=== PATIENT | female | born 1980 | race Caucasian/White ===

== ENCOUNTER 2020-01-26 14:28 | Inpatient (IN) | payer MEDICAID, SELFPAY ==
[2020-01-26] VITALS (8 sets, daily range): BP systolic 106–116; BP diastolic 50–73; PULSE 82–101; RESP 14–25; TEMP 36.3–36.7; O2SAT 96–99; BMI 22.2; BMI 22.0
--- NOTE | 2020-01-26 14:50 | ED.RN ---
PT HAS SCLERODERMA, SKIN IS TOUGH, RED, TIGHT.
--- NOTE | 2020-01-26 15:03 | ED.VIS.GEN ---
History of Present Illness Chief Complaint: Abn Labs Informant: Patient Narrative: 39-year-old female with history of systemic scleroderma presenting today with concern for hyponatremia. This is a new issue for the patient. Patient states that she had labs drawn a week ago and it showed that her sodium was 125. Patient states that she does have more difficulty walking due to the lower extremity pain. She does not specifically have any dizziness, shortness of breath, chest pain, nausea, vomiting. She states the medications that she is on are sildenafil 50 mg mg twice a day as well as CellCept 1000 mg mg twice a day. He states he has difficulty opening closing her jaw. Past Medical History - Allergies and Home Meds Allergies/Adverse Reactions: Allergies No Known Allergies Allergy (Verified 01/26/20 14:34) Primary Care Physician: Karie Kline MD [Primary Care Provider] - Past Medical History: - - Systemic scleroderma, Raynauds disease Lives: With Family Smoking Status: Unknown if ever smoked Alcohol: None Review of Systems General: Denies: Chills, Fever Eyes: Denies: Visual changes - bilaterally, Diplopia ENT: Denies: Rhinorrhea, Sore throat Cardiovascular: Denies: Chest pain, Palpitations Respiratory: Denies: Dyspnea Gastrointestinal: Denies: Abdominal pain, Nausea Musculoskeletal: Reports: Extremity Pain - Bilateral knee pain Skin: Denies: Rash, Abscess Neurological: Reports: Weakness. Denies: Headache Psych: Denies: Depression, Anxiety Physical Exam Vital Signs/Narrative: Vital Signs Temp Pulse Resp BP Pulse Ox 01/26/20 14:30 97.4 F L 101 H 14 108/73 97 Inital Vital Signs reviewed: Yes General: No Acute Distress Head: Normocephalic, Atraumatic Eyes: Perrl ENT: Moist mucous membranes, No rhinorrhea Neck: Supple Cardiovascular: Regular rate, Regular rhythm Respiratory: No distress, CTA bilaterally Abdomen: Soft Back: Normal Inspection Extremities: Edema, - - Generalized tenderness around the knees bilaterally Skin: Normal color, No rash Neurological: Alert, Oriented x3 Psychological: Normal affect Diagnostic/Tx/Re-eval - Medical Decision Making Seen and evaluated on arrival for concern for hyponatremia. After I spoke with the patient I did speak with her marking machine operator. She stated that the lab work she initially henry showed a sodium of 125 and a decreasing hemoglobin her latest sodium is 123 drawn a couple of days ago. She stated that the patient often plays down her symptoms because she does not like to be hospitalized. She states that she was complaining of shortness of breath when she was ambulating as well as jaw pain with opening. She had been having loose stools. She had spoken with her specialist who stated that the patient needed to be admitted and have upper endoscopy performed. She has concern for gastric antral vascular ectasia (GAVE syndrome). She feels that this may be part of the reason why her hemoglobin is dropping. Patient had difficulty getting a line ultrasound-guided line was placed by ED physician. Labs are pending. Patient will be signed out to incoming ED physician. This will likely be admission for hyponatremia and anemia. Patient stable on admission. Impression: 1. Hyponatremia 2. Anemia ED Disposition - Plan for ED Patient: Referrals: Karie Kline MD [Primary Care Provider] -
--- NOTE | 2020-01-26 15:04 | EKG12_ITS ---
Test Reason : DYSRHYTHMIA Blood Pressure : / mmHG Vent. Rate : 088 BPM Atrial Rate : 088 BPM P-R Int : 162 ms QRS Dur : 072 ms QT Int : 364 ms P-R-T Axes : 067 048 031 degrees QTc Int : 440 ms Normal sinus rhythm Normal ECG Confirmed by BIB SPENCER ([id number]), non linear editor JIM NARANJO ([id number]) on 01/30/2020 2:08:55 PM Referred By: JUAN Confirmed By:BIB SPENCER
--- NOTE | 2020-01-26 15:05 | VDLE_ITS ---
Reason For Study: Pain RIGHT LEFT GSV is normal. GSV is normal. Rt CFV and SFJ are visualized with color Lt CFV and SFJ are visualized with color only, pt unable to tolerate compression. only, pt unable to tolerate compression. Normal venous flow noted in the CFV. Normal venous flow noted in the CFV. FV is compressible, spontaneous, phasic, FV is compressible, spontaneous, phasic, competent and demonstrates normal competent and demonstrates normal augmentation. augmentation. POP V is compressible, spontaneous, phasic, POP V is compressible, spontaneous, phasic, competent and demonstrates normal competent and demonstrates normal augmentation. augmentation. T/P Trunk is compressible. T/P Trunk is compressible. PTV is compressible. PTV is compressible. RT PerV is compressible. LT PerV is compressible. Procedure Exam performed portable in ED. The study was technically difficult. A preliminary report was called and/or faxed to ED. Interpretation Summary No evidence for acute deep venous thrombosis bilateral lower extremities with patent and compressible bilateral great saphenous veins. Technically difficult and limited examination due to patient discomfort and inability to tolerate compression particularly at bilateral common femoral vein and saphenofemoral junction levels. Interpretation at those sites made by color-flow only Ordering Physician: Shaji Day Referring Physician: Karie Kline Performed By: Stephanie Hardy RVT
[2020-01-26 16:58] LABS: Mucous, Urine 0 SEEN /hpf (<or=2+); Red Blood Cells-Urine 0 SEEN /hpf (0-5); White Blood Cells 0 SEEN /hpf (0-5)
[2020-01-26 17:03] LABS: Color, Urine Yellow (Yellow); Glucose, Dipstick Normal (Normal); Ketone-Dipstick Negative (Negative); Leukocyte Esterase-Dipstick Negative /ul (Negative); Nitrite-Dipstick Negative (Negative); Occult Blood-Urine Negative /ul (Negative); Protein-Dipstick Negative (Negative); Urine Bilirubin Dipstick Negative (Negative); Urine Clarity Cloudy (Clear); Urine Urobilinogen Normal (Normal)
[2020-01-26 17:11] LABS: Absolute Lymphocyte Count 1.35 X10^3/uL (0.83-4.51); Absolute Neutrophil Count 5.3 X10^3/uL (2.0-7.7); Basophil# 0.04 X10^3/uL; Basophil% 0.5 % (0-1); Eosinophil# 0.24 X10^3/uL; Eosinophils% 3.1 % (0-5); Hematocrit 29.9 % (37-47); Hemoglobin 9.5 g/dL (12.0-15.0); Lymphocyte # 1.35 X10^3/ul (4.0); Lymphocyte % 17.2 % (19-41); Mean Corp Hgb Conc 31.8 g/dL (32-36); Mean Corpuscular Hgb 25.5 pg (27.0-32.0); Mean Corpuscular Volume 80.4 fL (81-99); Monocyte# 0.96 X10^3/uL; Monocyte% 12.2 % (0-10); NRBC Flagged by Analyzer 0 % (0-5); Neutrophil # 5.25 X10^3/uL (2.7-7.7); Neutrophil % 66.7 % (47-70); Platelet Count 498 K/mm3 (150-450); RBC Distribution Width CV 15.6 % (11.6-14.6); RBC Distribution Width SD 45.1 fl (35.1-43.9); Red Blood Count 3.72 M/mm3 (4.2-5.4); White Blood Count 7.9 K/mm3 (4.4-11.0)
--- NOTE | 2020-01-26 17:12 | ED.RN ---
DR MENDOZA PLACED IV USING U/S.
[2020-01-26 17:18] LABS: Amorphous Sediment 1+; Bacteria RARE /hpf (None Seen); Squamous Epithelial Cells - UA 0-5 SEEN /hpf (5-10)
--- NOTE | 2020-01-26 17:25 | RAD_ITS ---
STUDY: X-RAY CHEST REASON FOR EXAM: Female, 39 years old. SENT BY PCP FOR LOW SODIUM, H/O SYSTEMIC SCLERODERMA TECHNIQUE: Single frontal view of the chest. COMPARISON: None. FINDINGS: The lungs are clear and expanded. There is no demonstrated pleural abnormality. Normal size heart. Normal mediastinum and jhon. Normal visualized pulmonary arteries. Normal visualized aortic arch and descending thoracic aorta. Normal visualized thoracic spine. Normal visualized ribs, clavicles, and shoulders. There is no demonstrated abnormality of the visualized soft tissue structures of the upper abdomen. RAD/Chest 1 View (Portable) IMPRESSION: Normal x-ray examination of the chest. Electronically Signed: Issa Meadows MD at 17:39 EDT , Service support ,
[2020-01-26 17:31] LABS: ALB/GLOB Ratio 0.8 RATIO (0.9-2.4); AST(SGOT) 31 U/L (15-37); Alanine Aminotransfer ALT/SGPT 12 U/L (13-56); Albumin, Serum 2.9 g/dL (3.2-5.0); Alkaline Phosphatase 42 U/L (45-117); Anion Gap 6 (5-15); BUN 5 mg/dL (7-18); BUN/Creat Ratio 19.5 RATIO (10-20); Calcium,Total 8.4 mg/dL (8.5-10.1); Chloride 94 mmol/L (98-107); Creatinine, Serum 0.26 mg/dL (0.55-1.02); EST Glomerular Filtration Rate 315 mL/min (>60); Est Glom Filt Rate - Afr Amer 381 mL/min (>60); Estimated Creatinine Clearance 210.73 ml/min; Globulin 3.8 g/dL (2.2-4.2); Glucose 94 mg/dL (74-106); Potassium 3.7 mmol/L (3.5-5.1); Protein, Total 6.7 g/dL (6.4-8.2); Sodium Level 127 mmol/L (136-145)
--- NOTE | 2020-01-26 19:41 | PCM.HP.STD ---
Problem List (1) Scleroderma progressive Status: Chronic (2) Hyponatremia Status: Acute (3) Anemia Status: Acute History of Present Illness Date of Admission: 01/26/20 Chief Complaint: Anemia and hyponatremia in lab work with progressive exclude normal symptoms The patient is a 39 year old F with history of scleroderma diagnosed in February 2019 was sent by her gasoline engine assembler, Dr. Sharron Pagan for evaluation of hyponatremia and anemia. Last blood work on 01/11/2020 shows sodium 125, K4.3, chloride 89, bicarb 21, anion gap 15, BUN/creatinine 7/0.28. Albumin 3.8, calcium 9.5. CBC shows WBC count normal 8.8 thousand, H&H 9.8/31 and platelet count 511. UA was negative, specific gravity 1.02 Patient is having progressive increasing symptoms of scleroderma with tightening of his skin and subcutaneous tissue, difficulty opening mouth, mild dysphagia, progressive deformity of small joints of fingers, toes, elbow and knee flexion deformity. Patient cannot climb stairs. She also lost weight about 60 pounds last 8 months. She has history of leukemia as a child and had 3-1/2 years of chemotherapy and radiation as per the mother. Today, labs in ER shows sodium 127, chloride 94, H&H 9.5/30, platelet count 498. She follows gasoline engine assembler Dr. Sharron Pagan in [place], phone #[phone] and Sepideh Mchugh in [facility], phone #[phone]. She denies acute symptoms of shortness of breath, chest pressure, abdominal pain, GI bleed. She has reduced exercise capacity and shortness of breath on exertion, but that is chronic. [] Past Medical History Past Medical History (Chronic Problems): Chronic Problems Scleroderma progressive (Chronic) Allergies No Known Allergies Allergy (Verified 01/26/20 14:34) Home Medications: Ambulatory Orders Medication Instructions Recorded Cyanocobalamin (Vitamin B-12) 1,000 mcg PO DAILY 01/26/20 [Vitamin B-12] Ergocalciferol [Vitamin D] 50,000 unit PO ROE 01/26/20 Mycophenolate Mofetil HCl 1,000 mg PO BID 01/26/20 [Mycophenolate Mofetil] Sildenafil Citrate 50 mg PO BID 01/26/20 Vitamin E 400 unit PO DAILY 01/26/20 Lives: With Family Smoking Status: Unknown if ever smoked Alcohol: None - *Family History Maternal History Items: - - Maternal aunt has lupus, otherwise no first-degree family active of autoimmune rheumatologic disease. Review of Systems Constitutional: Denies: Chills, Fever, Weight Change HEENT: Denies: Head Aches, Sinus Congestion, Sinus Drainage Cardiovascular: Denies: Chest Pain, Palpitations Respiratory: Reports: Shortness of breath upon exertion. Denies: Cough, Shortness of breath at rest, Sputum production Gastrointestinal: Reports: Constipation. Denies: Abdominal Pain, Nausea, Vomiting Genitourinary: Denies: Dysuria Musculoskeletal: Denies: Joint Pain, Joint Tenderness Skin: Denies: Rash, Wounds Neurological: Reports: Balance problems, Incoordination. Denies: Focal weakness, Numbness, Tingling Psychiatric: Denies: Anxiety, Depression, Homicidal Ideations, Suicidal Ideations Hematologic/ Lymphatic: Denies: Easy Bruising, Easy Bleeding VTE Information - Inpt Only VTE Present on Admission: No VTE Mechan Device Prophylaxis: None VTE Pharm Prophylaxis ordered?: Yes Patient Problems: Active and Suspected Problems Hyponatremia (Acute) Anemia (Acute) - Physical Exam Vitals/I&O's: Vital Signs Temp Pulse Resp BP Pulse Ox 98.1 F 89 18 116/59 L 99 01/26/20 18:44 01/26/20 18:44 01/26/20 18:44 01/26/20 18:44 01/26/20 16:42 Weight: 114 lb Body Mass Index (BMI) 22.2 Intake and Output for Last 24 Hours 01/24/20 01/25/20 01/26/20 23:59 23:59 23:59 Intake Total 500 / 500 Balance 500 / 500 General: Alert, Oriented x3, Cooperative HEENT: Atraumatic, PERRLA, EOMI, Normocephalic Oral: No Gingival or Mucosal Lesions/ Ulcerations, Dry Mucosa Neck: Supple, No JVD, Negative Carotid Bruits Lungs: Normal air movement, No rhonchi, No wheeze, No rales, Diminished - Air entry diminished in bilateral lung bases Cardiovascular: Regular rate, No murmurs Abdomen: Bowel Sounds Present, Soft, Non Tender, Non-Distended Extremities: No edema, Capillary Refill Less than 3 Seconds, - - Finger deformities of both hands and toes. Elbow and knee flexion deformity. Not able to sit up from supine position on its own. Weak abdominal muscles Skin: No rashes, No breakdown, - - Tightening of his skin over face and chest. Decreasing oral aperture. Musculoskeletal: No Tenderness to Palpation of Joints or Extremities Neurological: Cranial nerves II-XII grossly intact, Deep Tendon Reflexes 2+/4 and Symmetrical, Neuro grossly intact, - - Generalized weakness of muscles. Loss of subcutaneous fat tissue. Psych/Mental Status: Normal Affect, Appropriate Laboratory Results 01/26/20 16:46: Urine Color Yellow, Urine Clarity Cloudy, Urine pH 7.0, Ur Specific [place] 1.010, Urine Protein Negative, Urine Glucose (UA) Normal, Urine Ketones Negative, Urine Occult Blood Negative, Urine Nitrite Negative, Urine Bilirubin Negative, Urine Urobilinogen Normal, Ur Leukocyte Esterase Negative, Urine RBC 0 SEEN, Urine WBC 0 SEEN, Ur Squamous Epith Cells 0-5 SEEN, Amorphous Sediment 1+, Urine Bacteria RARE, Urine Mucus 0 SEEN 01/26/20 17:03: WBC 7.9, RBC 3.72 L, Hgb 9.5 L, Hct 29.9 L, MCV 80.4 L, MCH 25.5 L, MCHC 31.8 L, RDW Std Deviation 45.1 H, RDW Coeff of Maryann 15.6 H, Plt Count 498 H, MPV 9.0, Immature Gran % (Auto) 0.300, Neut % (Auto) 66.7, Lymph % (Auto) 17.2 L, [place] % (Auto) 12.2 H, Eos % (Auto) 3.1, Baso % (Auto) 0.5, Absolute Neuts (auto) 5.3, Absolute Lymphs (auto) 1.35, Nucleated RBC % 0 01/26/20 17:03: Sodium 127 L, Potassium 3.7, Chloride 94 L, Carbon Dioxide 27.0, Anion Gap 6, BUN 5 L, Creatinine 0.26 L, Estim Creat Clear Calc 210.73, Est GFR (MDRD) Af Amer 381, Est GFR (MDRD) Non-Af 315, BUN/Creatinine Ratio 19.5, Glucose 94, Calcium 8.4 L, Total Bilirubin 0.20, AST 31, ALT 12 L, Alkaline Phosphatase 42 L, Total Protein 6.7, Albumin 2.9 L, Globulin 3.8, Albumin/Globulin Ratio 0.8 L Assessment/Plan All Active Problems Hyponatremia (Acute) Anemia (Acute) The patient is a 39 year old F with history of scleroderma diagnosed in February 2019 was sent by her gasoline engine assembler, Dr. Sharron Pagan for evaluation of hyponatremia and anemia. [] 1. Acute on chronic hyponatremia, most likely hypotonic isovolumic hyponatremia: Patient is being admitted to [facility] on telemetry. IV fluid normal saline at 100 mL/h. Monitor BMP tomorrow a.m. Serum osmolality, urine osmolality and urine lites ordered. 2. Mild normocytic normochromic anemia most likely from his chronic heart disease and possible medication side effect: Patient is on mycophenolate mofetil and has side effect of pancytopenia/immune suppression or pure red cell aplasia. Stool for occult blood ordered. PCP sent to ER for EGD for possible GAVE/watermelon stomach as scleroderma is related with gave. Consult surgery tomorrow a.m. 3. Progressive scleroderma, systemic with skin and musculoskeletal features, dysphagia and abnormal syndrome: She follows gasoline engine assembler Dr. Sharron Pagan in [place], phone #[phone] and Sepideh Mchugh in [facility], phone #[phone].Follow-up with gasoline engine assembler as an outpatient. Continue mycophenolate, sildenafil and B12. Patient might have pulmonary complications of scleroderma but never had CT chest and as per mother it is not covered by insurance. 4. Chronic loss of weight with moderate protein calorie malnutrition: She has diffuse subcutaneous loss of fat and moderate muscle atrophy with tightening of his skin secondary to scleroderma. She also has history of childhood leukemia status post chemoradiation. 5. VTE prophylaxis, moderate risk: On Lovenox 40 mg subcu daily. Discontinue if platelet count drops less than 50,000 or hemoglobin less than 8 g% OBSV E&M: 84805 Initial observation care L3
[2020-01-26 20:44] LABS: Osmolality, Serum 256 mOsm/KG (275-295)
[2020-01-26 22:11] LABS: Protein, Urine (Random) 10.8 mg/dL (<11.9); Protein:Creat Ratio 495 mg/g CRE (0-200)
[2020-01-26] MEDS: 0.9% Normal Saline 1,000 ML 100 ML IV (22:11)
[2020-01-26] MEDS: Mycophenolate Mofetil 250 MG Capsule 1000 MG PO (22:13)
[2020-01-26 22:18] LABS: Urine Chloride 141 mmol/L (Not Establ.); Urine Sodium 133 mmol/L (Not Establ.)
[2020-01-26 22:31] LABS: Osmolality, Urine 416 mOsm/KG
[2020-01-27] VITALS (12 sets, daily range): BP systolic 118–121; BP diastolic 53–77; PULSE 71–91; RESP 17–18; TEMP 36.4–37.1; O2SAT 94–99
[2020-01-27] MEDS: Enoxaparin 40 MG/0.4 ML Syringe SC (05:38)
[2020-01-27] MEDS: 0.9% Saline Lock 10 ML Syringe IV (08:12)
[2020-01-27 08:16] LABS: Absolute Neutrophil Count 1.6 X10^3/uL (2.0-7.7); Basophil# 0.03 X10^3/uL; Basophil% 0.9 % (0-1); Eosinophil# 0.18 X10^3/uL; Eosinophils% 5.1 % (0-5); Hematocrit 26.5 % (37-47); Hemoglobin 8.3 g/dL (12.0-15.0); Lymphocyte % 31.4 % (19-41); Mean Corp Hgb Conc 31.3 g/dL (32-36); Mean Corpuscular Hgb 25.1 pg (27.0-32.0); Mean Corpuscular Volume 80.1 fL (81-99); Monocyte# 0.54 X10^3/uL; Monocyte% 15.4 % (0-10); NRBC Flagged by Analyzer 0 % (0-5); Neutrophil # 1.64 X10^3/uL (2.7-7.7); Neutrophil % 46.9 % (47-70); POSITIVE MORPHOLOGY YES; Platelet Count 428 K/mm3 (150-450); RBC Distribution Width CV 15.8 % (11.6-14.6); RBC Distribution Width SD 46.1 fl (35.1-43.9); Red Blood Count 3.31 M/mm3 (4.2-5.4); White Blood Count 3.5 K/mm3 (4.4-11.0)
[2020-01-27 08:43] LABS: Differential Indicated SCAN CRITERIA MET
[2020-01-27 08:44] LABS: Differential Comment SCANNED
[2020-01-27 08:47] LABS: Anion Gap 6 (5-15); BUN 4 mg/dL (7-18); BUN/Creat Ratio 23.3 RATIO (10-20); Calcium,Total 7.8 mg/dL (8.5-10.1); Chloride 94 mmol/L (98-107); Creatinine, Serum 0.17 mg/dL (0.55-1.02); EST Glomerular Filtration Rate 501 mL/min (>60); Est Glom Filt Rate - Afr Amer 606 mL/min (>60); Estimated Creatinine Clearance 322.29 ml/min; Glucose 84 mg/dL (74-106); Magnesium 1.8 mg/dL (1.6-2.6); Potassium 3.7 mmol/L (3.5-5.1); Sodium Level 127 mmol/L (136-145); Thyroid Stim Hormone (TSH) 2.04 uIU/mL (0.358-3.74)
[2020-01-27] MEDS: 0.9% Normal Saline 1,000 ML 100 ML IV (08:48)
--- NOTE | 2020-01-27 09:10 | PCM.PN.HOSP ---
Patient Problems: Active and Suspected Problems Hyponatremia (Acute) Anemia (Acute) Reason for Visit: Hyponatremia Subjective: Patient is a 39-year-old lady with history of scleroderma admitted with abnormal lab work with sodium of 127 Objective: GENERAL: cooperative HEENT: Atraumatic; EYES; Anicteric, Normal Conjunctiva NECK; supple, normal thyroid, RESPIRATORY: Diminished to auscultation CARDIOVASCULAR: Regular S1 S2, GI: soft, normoactive bowel sounds, : No Renal angle tenderness; EXTREMITIES: No edema, no clubbing, MUSCULOSKELETAL: no muscle waisting NEURO: Awake; no lateralizing signs. SKIN: Tightening of the skin arms face and chest PSYCH; Flat affect Vitals/I&O's: Vital Signs Temp Pulse Resp BP Pulse Ox 97.6 F L 71 18 118/68 99 01/27/20 02:48 01/27/20 04:00 01/27/20 02:48 01/27/20 02:48 01/27/20 02:48 Oxygen Delivery Method Room Air Weight: 51.2 kg Body Mass Index (BMI) 22.0 Intake and Output for Last 24 Hours 01/25/20 01/26/20 01/27/20 23:59 23:59 23:59 Intake Total 500 / 500 1300 / 1300 Output Total 550 / 550 Balance 500 / 500 750 / 750 Laboratory Results 01/26/20 16:46: Urine Color Yellow, Urine Clarity Cloudy, Urine pH 7.0, Ur Specific [place] 1.010, Urine Protein Negative, Urine Glucose (UA) Normal, Urine Ketones Negative, Urine Occult Blood Negative, Urine Nitrite Negative, Urine Bilirubin Negative, Urine Urobilinogen Normal, Ur Leukocyte Esterase Negative, Urine RBC 0 SEEN, Urine WBC 0 SEEN, Ur Squamous Epith Cells 0-5 SEEN, Amorphous Sediment 1+, Urine Bacteria RARE, Urine Mucus 0 SEEN 01/26/20 16:46: Urine Osmolality 416 01/26/20 16:46: Urine Creatinine 22.60 01/26/20 16:46: U Random Total Protein 10.8, Urine Creatinine 21.80, Protein/Creatinin Ratio 495 H 01/26/20 16:46: Ur Random Sodium 133, Urine Potassium 28.0, Urine Chloride 141 01/26/20 17:03: WBC 7.9, RBC 3.72 L, Hgb 9.5 L, Hct 29.9 L, MCV 80.4 L, MCH 25.5 L, MCHC 31.8 L, RDW Std Deviation 45.1 H, RDW Coeff of Maryann 15.6 H, Plt Count 498 H, MPV 9.0, Immature Gran % (Auto) 0.300, Neut % (Auto) 66.7, Lymph % (Auto) 17.2 L, [place] % (Auto) 12.2 H, Eos % (Auto) 3.1, Baso % (Auto) 0.5, Absolute Neuts (auto) 5.3, Absolute Lymphs (auto) 1.35, Nucleated RBC % 0 01/26/20 17:03: Sodium 127 L, Potassium 3.7, Chloride 94 L, Carbon Dioxide 27.0, Anion Gap 6, BUN 5 L, Creatinine 0.26 L, Estim Creat Clear Calc 210.73, Est GFR (MDRD) Af Amer 381, Est GFR (MDRD) Non-Af 315, BUN/Creatinine Ratio 19.5, Glucose 94, Calcium 8.4 L, Total Bilirubin 0.20, AST 31, ALT 12 L, Alkaline Phosphatase 42 L, Total Protein 6.7, Albumin 2.9 L, Globulin 3.8, Albumin/Globulin Ratio 0.8 L 01/26/20 17:03: Serum Osmolality 256 L 01/27/20 08:07: WBC 3.5 L, RBC 3.31 L, Hgb 8.3 L, Hct 26.5 L, MCV 80.1 L, MCH 25.1 L, MCHC 31.3 L, RDW Std Deviation 46.1 H, RDW Coeff of Maryann 15.8 H, Plt Count 428, MPV 9.0, Immature Gran % (Auto) 0.300, Neut % (Auto) 46.9 L, Lymph % (Auto) 31.4, [place] % (Auto) 15.4 H, Eos % (Auto) 5.1 H, Baso % (Auto) 0.9, Absolute Neuts (auto) 1.6 L, Absolute Lymphs (auto) 1.10, Nucleated RBC % 0, Differential Comment SCANNED 01/27/20 08:07: Sodium 127 L, Potassium 3.7, Chloride 94 L, Carbon Dioxide 27.0, Anion Gap 6, BUN 4 L, Creatinine 0.17 L, Estim Creat Clear Calc 322.29, Est GFR (MDRD) Af Amer 606, Est GFR (MDRD) Non-Af 501, BUN/Creatinine Ratio 23.3 H, Glucose 84, Calcium 7.8 L, Magnesium 1.8, TSH 2.04 01/27/20 08:07: Sodium Cancelled, Potassium Cancelled, Chloride Cancelled, Carbon Dioxide Cancelled, Anion Gap Cancelled, BUN Cancelled, Creatinine Cancelled, Estim Creat Clear Calc Cancelled, Est GFR (MDRD) Af Amer Cancelled, Est GFR (MDRD) Non-Af Cancelled, BUN/Creatinine Ratio Cancelled, Glucose Cancelled, Calcium Cancelled Current Medications Acetaminophen (Tylenol) 650 mg PO Q6H PRN PRN PRN Reason: Pain Score 1-10/Temp > 100.7 F Albuterol Sulfate (Ventolin Aerosols) 2.5 mg INHALATION Q2H PRN PRN PRN Reason: Shortness of Breath/Wheezing Cyanocobalamin (Vitamin B12) 1,000 mcg PO DAILY [facility] Enoxaparin Sodium (Lovenox) 40 mg SC DAILY@0600 [facility] Last Admin: 01/27/20 05:38 Dose: 40 mg Documented by: Ergocalciferol (Vitamin D) 50,000 unit PO ROE [facility] Sodium Chloride () 1,000 mls @ 100 mls/hr IV .Q10H [facility] Last Admin: 01/27/20 08:48 Dose: 100 mls/hr Documented by: Melatonin (Melatonin) 3 mg PO QHS PRN PRN PRN Reason: INSOMNIA Morphine Sulfate () 2 mg IV Q3H PRN PRN PRN Reason: Pain Score 6-10/10 Mycophenolate Mofetil (Cellcept) 1,000 mg PO BID [facility] Last Admin: 01/26/20 22:13 Dose: 1,000 mg Documented by: Non-Formulary Medication (Sildenafil Citrate) 50 mg PO BID [facility] Nutritional Formula (Lactose Free) (Ensure Enlive) 120 ml PO 4X/DAY [facility] Ondansetron HCl (Zofran) 4 mg IV Q8H PRN PRN PRN Reason: NAUSEA/VOMITING Oxycodone HCl (Oxyir) 5 mg PO Q4H PRN PRN PRN Reason: Pain Score 4-5/10 Senna/Docusate Sodium (Senokot-S, Neema-Colace) 2 tablet PO BID PRN PRN PRN Reason: Constipation Sodium Chloride () 10 - 40 ml IV UD PRN PRN Reason: SALINE FLUSH Last Admin: 01/27/20 08:12 Dose: 10 ml Documented by: Vitamin E (Vitamin E) 400 units PO DAILY [facility] Medical Necessity - Tobacco Use Smoking Status: Current every day smoker Tobacco Use: Cigarettes Assessment/Plan All Active Problems Hyponatremia (Acute) Anemia (Acute) Patient is a 39-year-old lady with history of scleroderma admitted with abnormal lab work with sodium of 127 1. Acute on chronic hyponatremia ?Do suspect SIADH. Patient was started on fluids on admission however sodium levels did not change much. Patient was subsequently placed on fluid restriction after urine electrolytes have been ordered and consultation placed to nephrology 2. Progressive scleroderma ?Patient is onmycophenolate mofetil followed by field producer on [facility] 3. Anemia ?Suspected to be secondary to side effect of patient's therapy for her scleroderma. Monitoring H&H with plans to transfuse if hemoglobin falls below 7 or patient becomes symptomatic 4. Severe protein calorie malnutrition ?Consult placed to dietitian 5. 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 DVT prophylaxis ?Lovenox Inpatient E&M: [id number] [facility] Hosp L3
[2020-01-27] MEDS: Cyanocobalamin 500 MCG Tablet 1000 MCG PO (11:21)
[2020-01-27] MEDS: Mycophenolate Mofetil 250 MG Capsule 1000 MG PO ×2 (11:22→20:41)
[2020-01-27] MEDS: Vitamin E 400 UNITS Capsule PO (11:22)
--- NOTE | 2020-01-27 12:51 | CON.PCM_ITS ---
Problem List (1) Anemia Status: Acute Qualifiers: Anemia type: unspecified type Qualified Code(s): D64.9 - Anemia, unspecified Reason for Consult Date of Consultation: 01/27/20 History of Present Illness: The patient is a 39 year old F who is hospitalized due to hyponatremia. The patient notes no gross blood in her stool. She was advised to have a colonoscopy and EGD due to scleroderma and anemia. Patient is not having any abdominal pain. Past Medical History Past Medical History (Chronic Problems): Chronic Problems Scleroderma progressive (Chronic) Allergies No Known Allergies Allergy (Verified 01/26/20 14:34) Home Medications: Ambulatory Orders Medication Instructions Recorded Cyanocobalamin (Vitamin B-12) 1,000 mcg PO DAILY 01/26/20 [Vitamin B-12] Ergocalciferol [Vitamin D] 50,000 unit PO ROE 01/26/20 Mycophenolate Mofetil HCl 1,000 mg PO BID 01/26/20 [Mycophenolate Mofetil] Sildenafil Citrate 50 mg PO BID 01/26/20 Vitamin E 400 unit PO DAILY 01/26/20 Lives: With Family Smoking Status: Current every day smoker Tobacco Use: Cigarettes Alcohol: None - *Family History Maternal History Items: - - Maternal aunt has lupus, otherwise no first-degree family active of autoimmune rheumatologic disease. Review of Systems Constitutional: Denies: Anorexia, Fever HEENT: Denies: Difficulty Swallowing Cardiovascular: Denies: Chest Pain Respiratory: Denies: Cough, Shortness of Breath Gastrointestinal: Denies: Abdominal Pain, Hematemesis, Hematochezia, Nausea, Melena, Vomiting Genitourinary: Denies: Frequency Psychiatric: Denies: Anxiety Hematologic/ Lymphatic: Reports: Anemia Patient Problems: Active and Suspected Problems Hyponatremia (Acute) Anemia (Acute) - Physical Exam Vitals/I&O's: Vital Signs Temp Pulse Resp BP Pulse Ox 98.7 F 72 18 121/67 H 99 01/27/20 08:45 01/27/20 08:45 01/27/20 08:45 01/27/20 08:45 01/27/20 08:45 Oxygen Delivery Method Room Air Weight: 112 lb 14.027 oz Body Mass Index (BMI) 22.0 Intake and Output for Last 24 Hours 01/25/20 01/26/20 01/27/20 23:59 23:59 23:59 Intake Total 500 / 500 1420 / 1420 Output Total 550 / 550 Balance 500 / 500 870 / 870 General: Alert, Oriented x3 Neck: No JVD Lungs: Normal air movement Cardiovascular: Regular rate, Regular Rhythm Abdomen: Soft, Non Tender, Non-Distended Extremities: No clubbing Musculoskeletal: No Muscle Wasting Neurological: Cranial nerves II-XII grossly intact Psych/Mental Status: Normal Affect Laboratory Results 01/26/20 16:46: Urine Color Yellow, Urine Clarity Cloudy, Urine pH 7.0, Ur Specific Social [place] 1.010, Urine Protein Negative, Urine Glucose (UA) Normal, Urine Ketones Negative, Urine Occult Blood Negative, Urine Nitrite Negative, Urine Bilirubin Negative, Urine Urobilinogen Normal, Ur Leukocyte Esterase Negative, Urine RBC 0 SEEN, Urine WBC 0 SEEN, Ur Squamous Epith Cells 0-5 SEEN, Amorphous Sediment 1+, Urine Bacteria RARE, Urine Mucus 0 SEEN 01/26/20 16:46: Urine Osmolality 416 01/26/20 16:46: Urine Creatinine 22.60 01/26/20 16:46: U Random Total Protein 10.8, Urine Creatinine 21.80, Protein/Creatinin Ratio 495 H 01/26/20 16:46: Ur Random Sodium 133, Urine Potassium 28.0, Urine Chloride 141 01/26/20 17:03: WBC 7.9, RBC 3.72 L, Hgb 9.5 L, Hct 29.9 L, MCV 80.4 L, MCH 25.5 L, MCHC 31.8 L, RDW Std Deviation 45.1 H, RDW Coeff of Maryann 15.6 H, Plt Count 498 H, MPV 9.0, Immature Gran % (Auto) 0.300, Neut % (Auto) 66.7, Lymph % (Auto) 17.2 L, [place] % (Auto) 12.2 H, Eos % (Auto) 3.1, Baso % (Auto) 0.5, Absolute Neuts (auto) 5.3, Absolute Lymphs (auto) 1.35, Nucleated RBC % 0 01/26/20 17:03: Sodium 127 L, Potassium 3.7, Chloride 94 L, Carbon Dioxide 27.0, Anion Gap 6, BUN 5 L, Creatinine 0.26 L, Estim Creat Clear Calc 210.73, Est GFR (MDRD) Af Amer 381, Est GFR (MDRD) Non-Af 315, BUN/Creatinine Ratio 19.5, Glucose 94, Calcium 8.4 L, Total Bilirubin 0.20, AST 31, ALT 12 L, Alkaline Phosphatase 42 L, Total Protein 6.7, Albumin 2.9 L, Globulin 3.8, Albumin/Globulin Ratio 0.8 L 01/26/20 17:03: Serum Osmolality 256 L 01/27/20 08:07: WBC 3.5 L, RBC 3.31 L, Hgb 8.3 L, Hct 26.5 L, MCV 80.1 L, MCH 25.1 L, MCHC 31.3 L, RDW Std Deviation 46.1 H, RDW Coeff of Maryann 15.8 H, Plt Count 428, MPV 9.0, Immature Gran % (Auto) 0.300, Neut % (Auto) 46.9 L, Lymph % (Auto) 31.4, Grant % (Auto) 15.4 H, Eos % (Auto) 5.1 H, Baso % (Auto) 0.9, Absolute Neuts (auto) 1.6 L, Absolute Lymphs (auto) 1.10, Nucleated RBC % 0, Differential Comment SCANNED 01/27/20 08:07: Sodium 127 L, Potassium 3.7, Chloride 94 L, Carbon Dioxide 27.0, Anion Gap 6, BUN 4 L, Creatinine 0.17 L, Estim Creat Clear Calc 322.29, Est GFR (MDRD) Af Amer 606, Est GFR (MDRD) Non-Af 501, BUN/Creatinine Ratio 23.3 H, Glucose 84, Calcium 7.8 L, Magnesium 1.8, TSH 2.04 01/27/20 08:07: Sodium Cancelled, Potassium Cancelled, Chloride Cancelled, Carbon Dioxide Cancelled, Anion Gap Cancelled, BUN Cancelled, Creatinine Cancelled, Estim Creat Clear Calc Cancelled, Est GFR (MDRD) Af Amer Cancelled, Est GFR (MDRD) Non-Af Cancelled, BUN/Creatinine Ratio Cancelled, Glucose Cancelled, Calcium Cancelled Clinical Impression(s) from Imaging Studies Chest X-Ray 01/26/20 17:25 IMPRESSION: Normal x-ray examination of the chest. Electronically Signed: Issa Meadows MD at 17:39 EDT , Service support , Current Medications Acetaminophen (Tylenol) 650 mg PO Q6H PRN PRN PRN Reason: Pain Score 1-10/Temp > 100.7 F Albuterol Sulfate (Ventolin Aerosols) 2.5 mg INHALATION Q2H PRN PRN PRN Reason: Shortness of Breath/Wheezing Cyanocobalamin (Vitamin B12) 1,000 mcg PO DAILY [facility] Last Admin: 01/27/20 11:21 Dose: 1,000 mcg Documented by: Enoxaparin Sodium (Lovenox) 40 mg SC DAILY@0600 [facility] Last Admin: 01/27/20 05:38 Dose: 40 mg Documented by: Ergocalciferol (Vitamin D) 50,000 unit PO ROE [facility] Melatonin (Melatonin) 3 mg PO QHS PRN PRN PRN Reason: INSOMNIA Morphine Sulfate () 2 mg IV Q3H PRN PRN PRN Reason: Pain Score 6-10/10 Mycophenolate Mofetil (Cellcept) 1,000 mg PO BID [facility] Last Admin: 01/27/20 11:22 Dose: 1,000 mg Documented by: Nutritional Formula (Lactose Free) (Ensure Enlive) 120 ml PO 4X/DAY [facility] Last Admin: 01/27/20 11:24 Dose: 120 ml Documented by: Ondansetron HCl (Zofran) 4 mg IV Q8H PRN PRN PRN Reason: NAUSEA/VOMITING Oxycodone HCl (Oxyir) 5 mg PO Q4H PRN PRN PRN Reason: Pain Score 4-5/10 Senna/Docusate Sodium (Senokot-S, Neema-Colace) 2 tablet PO BID PRN PRN PRN Reason: Constipation Sildenafil Citrate (Viagra) 50 mg PO BID [facility] Sodium Chloride () 10 - 40 ml IV UD PRN PRN Reason: SALINE FLUSH Last Admin: 01/27/20 08:12 Dose: 10 ml Documented by: Vitamin E (Vitamin E) 400 units PO DAILY [facility] Last Admin: 01/27/20 11:22 Dose: 400 units Documented by: Assessment/Plan All Active Problems Hyponatremia (Acute) Anemia (Acute) 39-year-old female with anemia 1. The patient has scleroderma and anemia. She was recommended to have endoscopy to check for GAVE syndrome. The patient does not note any gross blood in her stool or abdominal pain. She has never had an EGD or colonoscopy. The patient's not having any gross blood loss and I would recommend that she undergo outpatient EGD and colonoscopy. I discussed these with her. I will have my office call her after discharge to arrange a COVID test and elective endoscopy. I explained endoscopy in detail to the patient. I explained the risks including but not limited to stroke or heart attack with anesthesia, perforation of the GI tract, bleeding, infection. I explained that any of these could necessitate further emergency surgery. The patient understands and all questions were answered sufficiently. The patient wishes to proceed with procedure. Terrance Aguilar MD Pager: [facility] [address] [place] [address], [address] [place] [address] Office:
[2020-01-27] MEDS: SILDENAFIL CITRATE 25 MG TABLET 50 MG PO ×2 (13:59→20:40)
--- NOTE | 2020-01-27 14:00 | CASEMGMT ---
RN WILLAM EXECUTIVE VICE PRESIDENT AND CHIEF FINANCIAL OFFICER CM to room to meet with patient for initial transition planning/care coordination assessment. NATALY QUARLES introduced self and role at [facility]. Pt voices understanding and consents to assessment at this time. Pt sitting up in chair in room in no distress at this time. Mother sitting beside pt. Pt is A/O at this time and answers all questions appropriately. Care providers, pharmacy, and demographics verified/updated at this time. PCP: Dr Tiwari Murdock Specialists: Dr Mchugh--Scleroderma specialist, Dr Sharron Pagan--cloud subject matter expert, Dr Goldberg--GI @ [facility] Preferred Pharmacy: [facility] Insurance: [facility] Prescription Benefit: Yes Living Will/HPOA: States does not have LW or HCPOA . Interested in more information and would like to talk w/SW at this time to complete paperwork. Provided information on advanced directives and SW, Dalila, made aware pt would like to complete paperwork. LNOK: Mother, Crystal Dave. Pt has 3 children: ages 14, 10, and 8 Living Arrangements: Lives w/her fiance and 3 children in 2-story home. 5 steps to enter. Bedroom and bath on 2nd floor. Fiance and mom both assist pt with ADL's and IADL's. Fiance helps pt w/getting ready in AM and then pt goes to her mothers house (which is 2 blocks away) for most of the day. Pt able to feed self. Transportation: Pt drives short distances only DME: Has extended tub/transfer bench and BSC. Pt interested in other adaptive equip for in the home to assist w/standing up, but would like to have therapy evaluate her in the home setting and make recommendations. Pt states no need for further DME at this time. HHC/SNF: No history of either. Was going to [facility] PT/OT prior to [facility]. Pt would like [facility]. Mom states cloud subject matter expert has been trying to get HHC set up through [facility] but has not been successful. Mom/pt state would like to go through them if possible, as referral has already been initiated. Call placed to [facility] and spoke w/Genia. She states they had denied [facility] d/t only OT had been ordered at that time. Genia made aware orders now are for SN, PT/OT, and aide. She states they are able to accept pt and start of care will be w/in 24-48 hrs after pt is discharged. Referral packet faxed to [facility] at this time. Pt/mom both made aware and they were provided w/[facility] phone number. Mom states pt could use more assistance in the home such as an aide to help throughout the day. Mom/pt are aware the aide coming in through [facility] is only for the duration that pt is receiving skilled services such as nursing or PT and that the aides only come in to help bath/dress. Pt wishes to return home and states has no concerns with going home at time of discharge. Mom states pt just recently applied for SS/disability but is not aware of the Waiver program. CM to follow for any further discharge planning/needs. Pt/mom voice no further concerns/needs at this time. Advised them to ask for CM if any further questions/concerns/needs arise. Voices understanding. PLAN: Home w/[facility]: SN, PT/OT, and aide. SW C/S for AD and info on Waiver program Aydin OCX RN CM
--- NOTE | 2020-01-27 14:12 | CASEMGMT ---
Social Work Spoke with patient about completing AD. Pt agreed. Completed HCPOA but did not want to complete LW. Pt named mother, Crystal Dave, as primary and Luther Miguel as secondary. Copies placed on chart. Provided Social Service Rack Card if she would like to complete LW after DC. Inquired about financial resources or waiver program - pt denied needing resources. Katelyn Norwood, MYLENE HEAD DOFFER
--- NOTE | 2020-01-27 14:44 | CON.PCM_ITS ---
Consultation - Renal 02/03/20 PCP/ Referring MD: Requesting physician: [] Primary care physician: Dr. Karie Kline MD Reason for Consultation:: hyponatremia - History of Present Illness History of Present Illness: The patient is a 39 year old F [ with unknown baseline sodium who is hospitalized due to hyponatremia. with na 127. The patient notes no gross blood in her stool. She was advised to have a colonoscopy and EGD due to scleroderma and anemia. - Allergies Allergies: Allergies No Known Allergies Allergy (Verified 01/26/20 14:34) - Current Medications Current Medications: Current Medications Acetaminophen (Tylenol) 650 mg PO Q6H PRN PRN PRN Reason: Pain Score 1-10/Temp > 100.7 F Albuterol Sulfate (Ventolin Aerosols) 2.5 mg INHALATION Q2H PRN PRN PRN Reason: Shortness of Breath/Wheezing Cyanocobalamin (Vitamin B12) 1,000 mcg PO DAILY [facility] Last Admin: 01/27/20 11:21 Dose: 1,000 mcg Documented by: Enoxaparin Sodium (Lovenox) 40 mg SC DAILY@0600 [facility] Last Admin: 01/27/20 05:38 Dose: 40 mg Documented by: Ergocalciferol (Vitamin D) 50,000 unit PO ROE [facility] Melatonin (Melatonin) 3 mg PO QHS PRN PRN PRN Reason: INSOMNIA Morphine Sulfate () 2 mg IV Q3H PRN PRN PRN Reason: Pain Score 6-10/10 Mycophenolate Mofetil (Cellcept) 1,000 mg PO BID [facility] Last Admin: 01/27/20 11:22 Dose: 1,000 mg Documented by: Nutritional Formula (Lactose Free) (Ensure Enlive) 120 ml PO 4X/DAY [facility] Last Admin: 01/27/20 14:02 Dose: Not Given Documented by: Ondansetron HCl (Zofran) 4 mg IV Q8H PRN PRN PRN Reason: NAUSEA/VOMITING Oxycodone HCl (Oxyir) 5 mg PO Q4H PRN PRN PRN Reason: Pain Score 4-5/10 Senna/Docusate Sodium (Senokot-S, Neema-Colace) 2 tablet PO BID PRN PRN PRN Reason: Constipation Sildenafil Citrate (Viagra) 50 mg PO BID [facility] Last Admin: 01/27/20 13:59 Dose: 50 mg Documented by: Sodium Chloride () 10 - 40 ml IV UD PRN PRN Reason: SALINE FLUSH Last Admin: 01/27/20 08:12 Dose: 10 ml Documented by: Vitamin E (Vitamin E) 400 units PO DAILY [facility] Last Admin: 01/27/20 11:22 Dose: 400 units Documented by: - Past Medical History Past Medical History (Chronic Problems): Chronic Problems Scleroderma progressive (Chronic) - Social History Smoking Status: Current every day smoker Alcohol: None - Family History Maternal History Items: - - Maternal aunt has lupus, otherwise no first-degree family active of autoimmune rheumatologic disease. Review of Systems Constitutional: Denies: Chills, Fever, Weight Change HEENT: Denies: Head Aches, Sinus Congestion, Sinus Drainage Cardiovascular: Denies: Chest Pain, Palpitations Respiratory: Denies: Cough, Shortness of breath at rest, Sputum production Gastrointestinal: Denies: Abdominal Pain, Nausea, Vomiting Genitourinary: Denies: Dysuria Musculoskeletal: Denies: Joint Pain, Joint Tenderness Skin: Denies: Rash, Wounds Neurological: Denies: Numbness, Tingling, Focal weakness Psychiatric: Denies: Anxiety, Depression, Homicidal Ideations, Suicidal Ideations Hematologic/ Lymphatic: Denies: Easy Bruising, Easy Bleeding Patient Problems: Active and Suspected Problems Hyponatremia (Acute) Anemia (Acute) - Physical Exam Vitals/I&O's: Vital Signs Temp Pulse Resp BP Pulse Ox 98.7 F 72 18 121/67 H 99 01/27/20 08:45 01/27/20 08:45 01/27/20 08:45 01/27/20 08:45 01/27/20 08:45 Oxygen Delivery Method Room Air Weight: 51.2 kg Body Mass Index (BMI) 22.0 Intake and Output for Last 24 Hours 01/25/20 01/26/20 01/27/20 23:59 23:59 23:59 Intake Total 500 / 500 1740 / 1740 Output Total 950 / 950 Balance 500 / 500 790 / 790 General: Alert, Oriented x3, Cooperative HEENT: Atraumatic, PERRLA, EOMI, Normocephalic Neck: Supple, No JVD, Negative Carotid Bruits Lungs: Clear to auscultation, Normal air movement Cardiovascular: Regular rate, No murmurs Abdomen: Bowel Sounds Present, Soft, Non Tender Extremities: No edema, Capillary Refill Less than 3 Seconds Skin: No rashes, No breakdown Musculoskeletal: No Tenderness to Palpation of Joints or Extremities Neurological: Cranial nerves II-XII grossly intact Psych/Mental Status: Normal Affect, Appropriate Laboratory Results 01/26/20 16:46: Urine Color Yellow, Urine Clarity Cloudy, Urine pH 7.0, Ur Specific Ord 1.010, Urine Protein Negative, Urine Glucose (UA) Normal, Urine Ketones Negative, Urine Occult Blood Negative, Urine Nitrite Negative, Urine Bilirubin Negative, Urine Urobilinogen Normal, Ur Leukocyte Esterase Negative, Urine RBC 0 SEEN, Urine WBC 0 SEEN, Ur Squamous Epith Cells 0-5 SEEN, Amorphous Sediment 1+, Urine Bacteria RARE, Urine Mucus 0 SEEN 01/26/20 16:46: Urine Osmolality 416 01/26/20 16:46: Urine Creatinine 22.60 01/26/20 16:46: U Random Total Protein 10.8, Urine Creatinine 21.80, Protein/Creatinin Ratio 495 H 01/26/20 16:46: Ur Random Sodium 133, Urine Potassium 28.0, Urine Chloride 141 01/26/20 17:03: WBC 7.9, RBC 3.72 L, Hgb 9.5 L, Hct 29.9 L, MCV 80.4 L, MCH 25.5 L, MCHC 31.8 L, RDW Std Deviation 45.1 H, RDW Coeff of Maryann 15.6 H, Plt Count 498 H, MPV 9.0, Immature Gran % (Auto) 0.300, Neut % (Auto) 66.7, Lymph % (Auto) 17.2 L, [place] % (Auto) 12.2 H, Eos % (Auto) 3.1, Baso % (Auto) 0.5, Absolute Neuts (auto) 5.3, Absolute Lymphs (auto) 1.35, Nucleated RBC % 0 01/26/20 17:03: Sodium 127 L, Potassium 3.7, Chloride 94 L, Carbon Dioxide 27.0, Anion Gap 6, BUN 5 L, Creatinine 0.26 L, Estim Creat Clear Calc 210.73, Est GFR (MDRD) Af Amer 381, Est GFR (MDRD) Non-Af 315, BUN/Creatinine Ratio 19.5, Glucose 94, Calcium 8.4 L, Total Bilirubin 0.20, AST 31, ALT 12 L, Alkaline Phosphatase 42 L, Total Protein 6.7, Albumin 2.9 L, Globulin 3.8, Albumin/Globulin Ratio 0.8 L 01/26/20 17:03: Serum Osmolality 256 L 01/27/20 08:07: WBC 3.5 L, RBC 3.31 L, Hgb 8.3 L, Hct 26.5 L, MCV 80.1 L, MCH 25.1 L, MCHC 31.3 L, RDW Std Deviation 46.1 H, RDW Coeff of Maryann 15.8 H, Plt Count 428, MPV 9.0, Immature Gran % (Auto) 0.300, Neut % (Auto) 46.9 L, Lymph % (Auto) 31.4, [place] % (Auto) 15.4 H, Eos % (Auto) 5.1 H, Baso % (Auto) 0.9, Absolute Neuts (auto) 1.6 L, Absolute Lymphs (auto) 1.10, Nucleated RBC % 0, Differential Comment SCANNED 01/27/20 08:07: Sodium 127 L, Potassium 3.7, Chloride 94 L, Carbon Dioxide 27.0, Anion Gap 6, BUN 4 L, Creatinine 0.17 L, Estim Creat Clear Calc 322.29, Est GFR (MDRD) Af Amer 606, Est GFR (MDRD) Non-Af 501, BUN/Creatinine Ratio 23.3 H, Glucose 84, Calcium 7.8 L, Magnesium 1.8, TSH 2.04 01/27/20 08:07: Sodium Cancelled, Potassium Cancelled, Chloride Cancelled, Carbon Dioxide Cancelled, Anion Gap Cancelled, BUN Cancelled, Creatinine Cancelled, Estim Creat Clear Calc Cancelled, Est GFR (MDRD) Af Amer Cancelled, Est GFR (MDRD) Non-Af Cancelled, BUN/Creatinine Ratio Cancelled, Glucose Cancelled, Calcium Cancelled Current Medications Acetaminophen (Tylenol) 650 mg PO Q6H PRN PRN PRN Reason: Pain Score 1-10/Temp > 100.7 F Albuterol Sulfate (Ventolin Aerosols) 2.5 mg INHALATION Q2H PRN PRN PRN Reason: Shortness of Breath/Wheezing Cyanocobalamin (Vitamin B12) 1,000 mcg PO DAILY [facility] Last Admin: 01/27/20 11:21 Dose: 1,000 mcg Documented by: Enoxaparin Sodium (Lovenox) 40 mg SC DAILY@0600 [facility] Last Admin: 01/27/20 05:38 Dose: 40 mg Documented by: Ergocalciferol (Vitamin D) 50,000 unit PO [facility] Melatonin (Melatonin) 3 mg PO QHS PRN PRN PRN Reason: INSOMNIA Morphine Sulfate () 2 mg IV Q3H PRN PRN PRN Reason: Pain Score 6-10/10 Mycophenolate Mofetil (Cellcept) 1,000 mg PO BID [facility] Last Admin: 01/27/20 11:22 Dose: 1,000 mg Documented by: Nutritional Formula (Lactose Free) (Ensure Enlive) 120 ml PO 4X/DAY [facility] Last Admin: 01/27/20 14:02 Dose: Not Given Documented by: Ondansetron HCl (Zofran) 4 mg IV Q8H PRN PRN PRN Reason: NAUSEA/VOMITING Oxycodone HCl (Oxyir) 5 mg PO Q4H PRN PRN PRN Reason: Pain Score 4-5/10 Senna/Docusate Sodium (Senokot-S, Neema-Colace) 2 tablet PO BID PRN PRN PRN Reason: Constipation Sildenafil Citrate (Viagra) 50 mg PO BID [facility] Last Admin: 01/27/20 13:59 Dose: 50 mg Documented by: Sodium Chloride () 10 - 40 ml IV UD PRN PRN Reason: SALINE FLUSH Last Admin: 01/27/20 08:12 Dose: 10 ml Documented by: Vitamin E (Vitamin E) 400 units PO DAILY [facility] Last Admin: 01/27/20 11:22 Dose: 400 units Documented by: Assessment/Plan All Active Problems Hyponatremia (Acute) Anemia (Acute) Hyponatremia with mild contraction alkalosis -Uosm ~400>serum osmolality -U Cl 141 -?SIADH vs tubular defect due to scleroderma but no RTA -IV LR 100ml/hr check serum Na q12 -Goal increase 3-4 meq in 4 hrs
[2020-01-27] MEDS: Sodium Chloride 1 GM Tablet PO ×2 (16:02→20:40)
[2020-01-27 21:41] LABS: Sodium Level 127 mmol/L (136-145)
[2020-01-28] VITALS (10 sets, daily range): BP systolic 97–120; BP diastolic 62–67; PULSE 78–92; RESP 16–18; TEMP 36.4–36.9; O2SAT 94–98
[2020-01-28] MEDS: Sodium Chloride 1 GM Tablet PO ×3 (05:36→21:45)
[2020-01-28] MEDS: Enoxaparin 40 MG/0.4 ML Syringe SC (05:36)
[2020-01-28] MEDS: Ondansetron 4 MG/2 ML Vial IV (05:56)
[2020-01-28 06:00] LABS: Hematocrit 26.5 % (37-47); Hemoglobin 8.5 g/dL (12.0-15.0); Mean Corp Hgb Conc 32.1 g/dL (32-36); Mean Corpuscular Hgb 25.6 pg (27.0-32.0); Mean Corpuscular Volume 79.8 fL (81-99); Platelet Count 450 K/mm3 (150-450); RBC Distribution Width CV 15.7 % (11.6-14.6); RBC Distribution Width SD 45.2 fl (35.1-43.9); Red Blood Count 3.32 M/mm3 (4.2-5.4); White Blood Count 4.2 K/mm3 (4.4-11.0)
[2020-01-28] MEDS: 0.9% Saline Lock 10 ML Syringe IV ×2 (06:05→22:03)
[2020-01-28 06:17] LABS: Anion Gap 7 (5-15); BUN 4 mg/dL (7-18); BUN/Creat Ratio 24.4 RATIO (10-20); Calcium,Total 7.9 mg/dL (8.5-10.1); Chloride 94 mmol/L (98-107); Creatinine, Serum 0.16 mg/dL (0.55-1.02); EST Glomerular Filtration Rate 529 mL/min (>60); Est Glom Filt Rate - Afr Amer 640 mL/min (>60); Glucose 86 mg/dL (74-106); Magnesium 1.8 mg/dL (1.6-2.6); Potassium 3.8 mmol/L (3.5-5.1); Sodium Level 127 mmol/L (136-145)
--- NOTE | 2020-01-28 07:24 | PN_ITS ---
Patient Problems: Active and Suspected Problems Hyponatremia (Acute) Anemia (Acute) Reason for Visit: Abnormal lab work with sodium of 127 Subjective: Patient is a 39-year-old lady with history of scleroderma admitted with abnormal lab work with sodium of 127 Objective: GENERAL: cooperative HEENT: Atraumatic; EYES; Anicteric, Normal Conjunctiva NECK; supple, normal thyroid, RESPIRATORY: Diminished to auscultation CARDIOVASCULAR: Regular S1 S2, GI: soft, normoactive bowel sounds, : No Renal angle tenderness; EXTREMITIES: No edema, no clubbing, MUSCULOSKELETAL: no muscle waisting NEURO: Awake; no lateralizing signs. SKIN: Tightening of the skin arms face and chest PSYCH; Flat affect Vitals/I&O's: Vital Signs Temp Pulse Resp BP Pulse Ox 97.8 F 78 17 120/62 94 01/28/20 02:49 01/28/20 03:00 01/28/20 02:49 01/28/20 02:49 01/28/20 07:02 Oxygen Delivery Method Room Air Weight: 51.2 kg Body Mass Index (BMI) 22.0 Intake and Output for Last 24 Hours 01/26/20 01/27/20 01/28/20 23:59 23:59 23:59 Intake Total 500 / 500 1940 / 1940 170 / 170 Output Total 950 / 950 400 / 400 Balance 500 / 500 990 / 990 -230 / -230 Laboratory Results 01/27/20 08:07: WBC 3.5 L, RBC 3.31 L, Hgb 8.3 L, Hct 26.5 L, MCV 80.1 L, MCH 25.1 L, MCHC 31.3 L, RDW Std Deviation 46.1 H, RDW Coeff of Maryann 15.8 H, Plt Count 428, MPV 9.0, Immature Gran % (Auto) 0.300, Neut % (Auto) 46.9 L, Lymph % (Auto) 31.4, Mchenry % (Auto) 15.4 H, Eos % (Auto) 5.1 H, Baso % (Auto) 0.9, Absolute Neuts (auto) 1.6 L, Absolute Lymphs (auto) 1.10, Nucleated RBC % 0, Differential Comment SCANNED 01/27/20 08:07: Sodium 127 L, Potassium 3.7, Chloride 94 L, Carbon Dioxide 27.0, Anion Gap 6, BUN 4 L, Creatinine 0.17 L, Estim Creat Clear Calc 322.29, Est GFR (MDRD) Af Amer 606, Est GFR (MDRD) Non-Af 501, BUN/Creatinine Ratio 23.3 H, Glucose 84, Calcium 7.8 L, Magnesium 1.8, TSH 2.04 01/27/20 08:07: Sodium Cancelled, Potassium Cancelled, Chloride Cancelled, Ca rbon Dioxide Cancelled, Anion Gap Cancelled, BUN Cancelled, Creatinine Cancelled, Estim Creat Clear Calc Cancelled, Est GFR (MDRD) Af Amer Cancelled, Est GFR (MDRD) Non-Af Cancelled, BUN/Creatinine Ratio Cancelled, Glucose Cancelled, Calcium Cancelled 01/27/20 21:21: Sodium 127 L 01/28/20 05:55: WBC 4.2 L, RBC 3.32 L, Hgb 8.5 L, Hct 26.5 L, MCV 79.8 L, MCH 25.6 L, MCHC 32.1, RDW Std Deviation 45.2 H, RDW Coeff of Maryann 15.7 H, Plt Count 450, MPV 9.0 01/28/20 05:55: Sodium 127 L, Potassium 3.8, Chloride 94 L, Carbon Dioxide 26.0, Anion Gap 7, BUN 4 L, Creatinine 0.16 L, Estim Creat Clear Calc 342.43, Est GFR (MDRD) Af Amer 640, Est GFR (MDRD) Non-Af 529, BUN/Creatinine Ratio 24.4 H, Glucose 86, Calcium 7.9 L, Magnesium 1.8 Current Medications Acetaminophen (Tylenol) 650 mg PO Q6H PRN PRN PRN Reason: Pain Score 1-10/Temp > 100.7 F Albuterol Sulfate (Ventolin Aerosols) 2.5 mg INHALATION Q2H PRN PRN PRN Reason: Shortness of Breath/Wheezing Cyanocobalamin (Vitamin B12) 1,000 mcg PO DAILY [facility] Last Admin: 01/27/20 11:21 Dose: 1,000 mcg Documented by: Enoxaparin Sodium (Lovenox) 40 mg SC DAILY@0600 [facility] Last Admin: 01/28/20 05:36 Dose: 40 mg Documented by: Ergocalciferol (Vitamin D) 50,000 unit PO [facility] Melatonin (Melatonin) 3 mg PO QHS PRN PRN PRN Reason: INSOMNIA Morphine Sulfate () 2 mg IV Q3H PRN PRN PRN Reason: Pain Score 6-10/10 Mycophenolate Mofetil (Cellcept) 1,000 mg PO BID [facility] Last Admin: 01/27/20 20:41 Dose: 1,000 mg Documented by: Nutritional Formula (Lactose Free) (Ensure Enlive) 120 ml PO 4X/DAY [facility] Last Admin: 01/27/20 20:40 Dose: 120 ml Documented by: Ondansetron HCl (Zofran) 4 mg IV Q8H PRN PRN PRN Reason: NAUSEA/VOMITING Last Admin: 01/28/20 05:56 Dose: 4 mg Documented by: Oxycodone HCl (Oxyir) 5 mg PO Q4H PRN PRN PRN Reason: Pain Score 4-5/10 Senna/Docusate Sodium (Senokot-S, Neema-Colace) 2 tablet PO BID PRN PRN PRN Reason: Constipation Sildenafil Citrate (Viagra) 50 mg PO BID [facility] Last Admin: 01/27/20 20:40 Dose: 50 mg Documented by: Sodium Chloride () 10 - 40 ml IV UD PRN PRN Reason: SALINE FLUSH Last Admin: 01/28/20 06:05 Dose: 30 ml Documented by: Sodium Chloride (Sodium Chloride) 1 gm PO TID [facility] Last Admin: 01/28/20 05:36 Dose: 1 gm Documented by: Vitamin E (Vitamin E) 400 units PO DAILY [facility] Last Admin: 01/27/20 11:22 Dose: 400 units Documented by: STROKE Vital Signs/Narrative: Vital Signs Pulse Ox 01/28/20 07:02 94 Medical Necessity - Tobacco Use Smoking Status: Current every day smoker Tobacco Use: Cigarettes Assessment/Plan All Active Problems Hyponatremia (Acute) Anemia (Acute) Patient is a 39-year-old lady with history of scleroderma admitted with abnormal lab work with sodium of 127 1. Acute on chronic hyponatremia ?Do suspect SIADH. Patient was started on fluids on admission however sodium levels did not change much. Patient was subsequently placed on fluid restriction after urine electrolytes have been ordered and consultation placed to nephrology -?Patient was seen in consultation by nephrology placed on Ringer's lactate with serial monitoring of sodium levels 2. Progressive scleroderma ?Patient is on mycophenolate mofetil followed by maintenance groundskeeper on [facility] 3. Anemia ?Suspected to be secondary to side effect of patient's therapy for her scleroderma. Monitoring H&H with plans to transfuse if hemoglobin falls below 7 or patient becomes symptomatic 4. Severe protein calorie malnutrition ?Consult placed to dietitian 5. 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 DVT prophylaxis ?Lovenox Inpatient E&M: 96449 Subs Hosp L2
[2020-01-28] MEDS: Vitamin E 400 UNITS Capsule PO (08:55)
[2020-01-28] MEDS: SILDENAFIL CITRATE 25 MG TABLET 50 MG PO ×2 (08:55→21:46)
[2020-01-28] MEDS: Mycophenolate Mofetil 250 MG Capsule 1000 MG PO ×2 (08:56→21:46)
[2020-01-28] MEDS: Cyanocobalamin 500 MCG Tablet 1000 MCG PO (08:56)
--- NOTE | 2020-01-28 09:58 | PN.SURG_ITS ---
Patient Problems: Active and Suspected Problems Hyponatremia (Acute) Anemia (Acute) Subjective: Patient has had no bloody bowel movements. She was nauseated and had some vomiting this morning. Objective: Abdomen is soft and nontender - Physical Exam Vitals/I&O's: Vital Signs Temp Pulse Resp BP Pulse Ox 97.8 F 81 17 120/62 94 01/28/20 02:49 01/28/20 07:59 01/28/20 02:49 01/28/20 02:49 01/28/20 07:02 Oxygen Delivery Method Room Air Weight: 112 lb 14.027 oz Body Mass Index (BMI) 22.0 Intake and Output for Last 24 Hours 01/26/20 01/27/20 01/28/20 23:59 23:59 23:59 Intake Total 500 / 500 1940 / 1940 170 / 170 Output Total 950 / 950 400 / 400 Balance 500 / 500 990 / 990 -230 / -230 Laboratory Results 01/27/20 21:21: Sodium 127 L 01/28/20 05:55: WBC 4.2 L, RBC 3.32 L, Hgb 8.5 L, Hct 26.5 L, MCV 79.8 L, MCH 25.6 L, MCHC 32.1, RDW Std Deviation 45.2 H, RDW Coeff of Maryann 15.7 H, Plt Count 450, MPV 9.0 01/28/20 05:55: Sodium 127 L, Potassium 3.8, Chloride 94 L, Carbon Dioxide 26.0, Anion Gap 7, BUN 4 L, Creatinine 0.16 L, Estim Creat Clear Calc 342.43, Est GFR (MDRD) Af Amer 640, Est GFR (MDRD) Non-Af 529, BUN/Creatinine Ratio 24.4 H, Glucose 86, Calcium 7.9 L, Magnesium 1.8 Current Medications Acetaminophen (Tylenol) 650 mg PO Q6H PRN PRN PRN Reason: Pain Score 1-10/Temp > 100.7 F Albuterol Sulfate (Ventolin Aerosols) 2.5 mg INHALATION Q2H PRN PRN PRN Reason: Shortness of Breath/Wheezing Cyanocobalamin (Vitamin B12) 1,000 mcg PO DAILY [facility] Last Admin: 01/28/20 08:56 Dose: 1,000 mcg Documented by: Enoxaparin Sodium (Lovenox) 40 mg SC DAILY@0600 [facility] Last Admin: 01/28/20 05:36 Dose: 40 mg Documented by: Ergocalciferol (Vitamin D) 50,000 unit PO [facility] Melatonin (Melatonin) 3 mg PO QHS PRN PRN PRN Reason: INSOMNIA Morphine Sulfate () 2 mg IV Q3H PRN PRN PRN Reason: Pain Score 6-10/10 Mycophenolate Mofetil (Cellcept) 1,000 mg PO BID [facility] Last Admin: 01/28/20 08:56 Dose: 1,000 mg Documented by: Nutritional Formula (Lactose Free) (Ensure Enlive) 120 ml PO 4X/DAY [facility] Last Admin: 01/28/20 09:05 Dose: Not Given Documented by: Ondansetron HCl (Zofran) 4 mg IV Q8H PRN PRN PRN Reason: NAUSEA/VOMITING Last Admin: 01/28/20 05:56 Dose: 4 mg Documented by: Oxycodone HCl (Oxyir) 5 mg PO Q4H PRN PRN PRN Reason: Pain Score 4-5/10 Senna/Docusate Sodium (Senokot-S, Neema-Colace) 2 tablet PO BID PRN PRN PRN Reason: Constipation Sildenafil Citrate (Viagra) 50 mg PO BID [facility] Last Admin: 01/28/20 08:55 Dose: 50 mg Documented by: Sodium Chloride () 10 - 40 ml IV UD PRN PRN Reason: SALINE FLUSH Last Admin: 01/28/20 06:05 Dose: 30 ml Documented by: Sodium Chloride (Sodium Chloride) 1 gm PO TID [facility] Last Admin: 01/28/20 05:36 Dose: 1 gm Documented by: Vitamin E (Vitamin E) 400 units PO DAILY [facility] Last Admin: 01/28/20 08:55 Dose: 400 units Documented by: Medical Necessity - Tobacco Use Smoking Status: Current every day smoker Tobacco Use: Cigarettes Assessment/Plan All Active Problems Hyponatremia (Acute) Anemia (Acute) Outpatient endoscopy will be initiated.
--- NOTE | 2020-01-28 16:32 | PN.RENAL_ITS ---
Patient Problems: Active and Suspected Problems Hyponatremia (Acute) Anemia (Acute) Objective: Pt denied nausea /vomiting No SOB + edema poor appetite - Physical Exam Vitals/I&O's: Vital Signs Temp Pulse Resp BP Pulse Ox 98.5 F 79 16 97/63 98 01/28/20 08:45 01/28/20 11:59 01/28/20 08:45 01/28/20 08:45 01/28/20 08:45 Oxygen Delivery Method Room Air Weight: 51.2 kg Body Mass Index (BMI) 22.0 Intake and Output for Last 24 Hours 01/26/20 01/27/20 01/28/20 23:59 23:59 23:59 Intake Total 500 / 500 1940 / 1940 320 / 320 Output Total 950 / 950 400 / 400 Balance 500 / 500 990 / 990 -80 / -80 General: Alert, Oriented x3 HEENT: Atraumatic Oral: Moist Mucosa Neck: Supple, No JVD Lungs: Clear to auscultation, Normal air movement, No rhonchi Cardiovascular: Regular rate, Regular Rhythm, Normal S1, Normal S2 Abdomen: Bowel Sounds Present, Soft, Non Tender, Non-Distended Extremities: No clubbing, No cyanosis, Edema Musculoskeletal: Cachexia Lymphatic: No Cervical, Supraclavicular, or Inguinal Adenopathy Neurological: Cranial nerves II-XII grossly intact, Neuro grossly intact Psych/Mental Status: Appropriate Laboratory Results 01/27/20 21:21: Sodium 127 L 01/28/20 05:55: WBC 4.2 L, RBC 3.32 L, Hgb 8.5 L, Hct 26.5 L, MCV 79.8 L, MCH 25.6 L, MCHC 32.1, RDW Std Deviation 45.2 H, RDW Coeff of Maryann 15.7 H, Plt Count 450, MPV 9.0 01/28/20 05:55: Sodium 127 L, Potassium 3.8, Chloride 94 L, Carbon Dioxide 26.0, Anion Gap 7, BUN 4 L, Creatinine 0.16 L, Estim Creat Clear Calc 342.43, Est GFR (MDRD) Af Amer 640, Est GFR (MDRD) Non-Af 529, BUN/Creatinine Ratio 24.4 H, Glucose 86, Calcium 7.9 L, Magnesium 1.8 Current Medications Acetaminophen (Tylenol) 650 mg PO Q6H PRN PRN PRN Reason: Pain Score 1-10/Temp > 100.7 F Albuterol Sulfate (Ventolin Aerosols) 2.5 mg INHALATION Q2H PRN PRN PRN Reason: Shortness of Breath/Wheezing Cyanocobalamin (Vitamin B12) 1,000 mcg PO DAILY [facility] Last Admin: 01/28/20 08:56 Dose: 1,000 mcg Documented by: Enoxaparin Sodium (Lovenox) 40 mg SC DAILY@0600 [facility] Last Admin: 01/28/20 05:36 Dose: 40 mg Documented by: Ergocalciferol (Vitamin D) 50,000 unit PO ROE [facility] Melatonin (Melatonin) 3 mg PO QHS PRN PRN PRN Reason: INSOMNIA Morphine Sulfate () 2 mg IV Q3H PRN PRN PRN Reason: Pain Score 6-10/10 Mycophenolate Mofetil (Cellcept) 1,000 mg PO BID [facility] Last Admin: 01/28/20 08:56 Dose: 1,000 mg Documented by: Nutritional Formula (Lactose Free) (Ensure Enlive) 120 ml PO 4X/DAY [facility] Last Admin: 01/28/20 14:23 Dose: Not Given Documented by: Ondansetron HCl (Zofran) 4 mg IV Q8H PRN PRN PRN Reason: NAUSEA/VOMITING Last Admin: 01/28/20 05:56 Dose: 4 mg Documented by: Oxycodone HCl (Oxyir) 5 mg PO Q4H PRN PRN PRN Reason: Pain Score 4-5/10 Senna/Docusate Sodium (Senokot-S, Neema-Colace) 2 tablet PO BID PRN PRN PRN Reason: Constipation Sildenafil Citrate (Viagra) 50 mg PO BID [facility] Last Admin: 01/28/20 08:55 Dose: 50 mg Documented by: Sodium Chloride () 10 - 40 ml IV UD PRN PRN Reason: SALINE FLUSH Last Admin: 01/28/20 06:05 Dose: 30 ml Documented by: Sodium Chloride (Sodium Chloride) 1 gm PO TID [facility] Last Admin: 01/28/20 15:19 Dose: 1 gm Documented by: Vitamin E (Vitamin E) 400 units PO DAILY [facility] Last Admin: 01/28/20 08:55 Dose: 400 units Documented by: Medical Necessity - Tobacco Use Smoking Status: Current every day smoker Tobacco Use: Cigarettes Assessment/Plan All Active Problems Hyponatremia (Acute) Anemia (Acute) 1- Hyponatremia . looks normovolemic. Urine Osmo > 400 and urine Na > 100 indicting SIADH Pt is 1L+ in fluid balance. Na is stable at 127 On salt tab 1 g TID. Will add Bumex 1 mg PO daily No need for 3% NaCl Check Na in am 2- edema : likely from low oncotic pressure will start Bumex 3- hypotension. chronic issue monitor with adding Bumex Might add midodrine if worsens Renal team will continue to follow Please call if any question at [phone] Nisha Bergman MD
[2020-01-29 03:59] VITALS: PULSE 78
[2020-01-29 04:58] VITALS: BP 106/64; PULSE 100; RESP 16; TEMP 36.4; O2SAT 97
[2020-01-29] MEDS: Enoxaparin 40 MG/0.4 ML Syringe SC (05:01)
[2020-01-29 05:19] LABS: Hematocrit 25.1 % (37-47); Hemoglobin 8.1 g/dL (12.0-15.0); Mean Corp Hgb Conc 32.3 g/dL (32-36); Mean Corpuscular Hgb 25.7 pg (27.0-32.0); Mean Corpuscular Volume 79.7 fL (81-99); Mean Platelet Vol. 9.3 fl (6.2-12.0); Platelet Count 425 K/mm3 (150-450); RBC Distribution Width CV 15.8 % (11.6-14.6); RBC Distribution Width SD 45.4 fl (35.1-43.9); Red Blood Count 3.15 M/mm3 (4.2-5.4)
[2020-01-29 05:31] LABS: Anion Gap 6 (5-15); BUN 7 mg/dL (7-18); BUN/Creat Ratio 41.9 RATIO (10-20); Chloride 96 mmol/L (98-107); Creatinine, Serum 0.17 mg/dL (0.55-1.02); EST Glomerular Filtration Rate 518 mL/min (>60); Est Glom Filt Rate - Afr Amer 627 mL/min (>60); Estimated Creatinine Clearance 322.29 ml/min; Glucose 89 mg/dL (74-106); Potassium 4.1 mmol/L (3.5-5.1); Sodium Level 130 mmol/L (136-145)
[2020-01-29 07:04] VITALS: O2SAT 96
[2020-01-29 07:31] VITALS: PULSE 84
--- NOTE | 2020-01-29 08:19 | PCM.DC ---
- Discharge Diagnoses Current Active Problems: Current Active and Chronic Problems Scleroderma progressive (Chronic) Hyponatremia (Acute) Anemia (Acute) You will use the following diet at home:: Fluid restricted (specify 2000 mls, 1500 mls) - 1500 Your food should be the consistency of: Regular Discharge Activity: Return to Normal Activity Allergies/Adverse Reactions: Allergies No Known Allergies Allergy (Verified 01/26/20 14:34) Medications to take at Discharge Cyanocobalamin (Vitamin B-12) [Vitamin B-12] 1,000 mcg PO DAILY 01/26/20 Ergocalciferol [Vitamin D] 50,000 unit PO ROE 01/26/20 Mycophenolate Mofetil HCl [Mycophenolate Mofetil] 1,000 mg PO BID 01/26/20 Sildenafil Citrate 50 mg PO BID 01/26/20 Vitamin E 400 unit PO DAILY 01/26/20 Bumetanide [Bumex] 1 mg PO DAILY #30 tab 01/29/20 Sodium Chloride 1 gm PO BID #60 tab 01/29/20 The following prescriptions were given: Bumetanide [Bumex] 1 mg PO DAILY #30 tab Transmission Status: Received by [id number] Sodium Chloride 1 gm PO BID #60 tab Transmission Status: Pending to [id number] Primary Care Physician: Karie Kline MD [Primary Care Provider] - Please follow up with your Primary Care Physician in: in 5-7 days Test Results: Test results from this visit will be discussed in further detail at your follow-up appointment, if applicable. Proposed Discharge Date: 01/29/20
--- NOTE | 2020-01-29 08:20 | PCM.DC.SUM ---
Discharge Date and Diagnosis - Problem List Patient Problems: Active and Suspected Problems Hyponatremia (Acute) Anemia (Acute) Date of Admission: 01/26/20 Date of Discharge: 01/29/20 - Primary Discharge Diagnosis Acute Problems: Active Problems Hyponatremia (Acute) Anemia (Acute) - Secondary Discharge Diagnosis Chronic Problems: Chronic Problems Scleroderma progressive (Chronic) Hospital Course and Treatment Imaging Results: Clinical Impression(s) from Imaging Studies Chest X-Ray 01/26/20 17:25 IMPRESSION: Normal x-ray examination of the chest. Electronically Signed: Issa Meadows MD at 17:39 EDT , Service support , Summary of Care Provided: Patient is a 39-year-old lady with history of scleroderma admitted with abnormal lab work with sodium of 127 1. Acute on chronic hyponatremia ?Do suspect SIADH. Patient was started on fluids on admission however sodium levels did not change much. Patient was subsequently placed on fluid restriction after urine electrolytes have been ordered and consultation placed to nephrology -?Patient was seen in consultation by nephrology placed on Ringer's lactate with serial monitoring of sodium levels -Treated with sodium tablet as well as Bumex radiolabeled did improve. Discharged home instructed to follow-up with her scleroderma specialist at the [facility] 2. Progressive scleroderma ?Patient is on mycophenolate mofetil followed by personal financial representative on [facility] 3. Anemia ?Suspected to be secondary to side effect of patient's therapy for her scleroderma. Monitoring H&H with plans to transfuse if hemoglobin falls below 7 or patient becomes symptomatic 4. Severe protein calorie malnutrition ?Consult placed to dietitian 5. 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 DVT prophylaxis ?Lovenox Patient Problems: Active and Suspected Problems Hyponatremia (Acute) Anemia (Acute) - Physical Exam Vitals/I&O's: Vital Signs Temp Pulse Resp BP Pulse Ox 97.5 F L 84 16 106/64 96 01/29/20 04:58 01/29/20 07:31 01/29/20 04:58 01/29/20 04:58 01/29/20 07:04 Oxygen Delivery Method Room Air Weight: 51.2 kg Body Mass Index (BMI) 22.0 Intake and Output for Last 24 Hours 01/27/20 01/28/20 01/29/20 23:59 23:59 23:59 Intake Total 1940 / 1940 845 / 965 120 / 120 Output Total 950 / 950 400 / 400 Balance 990 / 990 445 / 565 120 / 120 General: Alert HEENT: Atraumatic Lungs: Diminished Cardiovascular: Regular rate, Regular Rhythm Psych/Mental Status: Normal Affect Laboratory Results 01/29/20 05:00: WBC 4.0 L, RBC 3.15 L, Hgb 8.1 L, Hct 25.1 L, MCV 79.7 L, MCH 25.7 L, MCHC 32.3, RDW Std Deviation 45.4 H, RDW Coeff of Maryann 15.8 H, Plt Count 425, MPV 9.3 01/29/20 05:00: Sodium 130 L, Potassium 4.1, Chloride 96 L, Carbon Dioxide 28.0, Anion Gap 6, BUN 7, Creatinine 0.17 L, Estim Creat Clear Calc 322.29, Est GFR (MDRD) Af Amer 627, Est GFR (MDRD) Non-Af 518, BUN/Creatinine Ratio 41.9 H, Glucose 89, Calcium 8.0 L Current Medications Acetaminophen (Tylenol) 650 mg PO Q6H PRN PRN PRN Reason: Pain Score 1-10/Temp > 100.7 F Albuterol Sulfate (Ventolin Aerosols) 2.5 mg INHALATION Q2H PRN PRN PRN Reason: Shortness of Breath/Wheezing Bumetanide (Bumex) 1 mg PO DAILY [facility] Cyanocobalamin (Vitamin B12) 1,000 mcg PO DAILY [facility] Last Admin: 01/28/20 08:56 Dose: 1,000 mcg Documented by: Enoxaparin Sodium (Lovenox) 40 mg SC DAILY@0600 [facility] Last Admin: 01/29/20 05:01 Dose: 40 mg Documented by: Ergocalciferol (Vitamin D) 50,000 unit PO [facility] Melatonin (Melatonin) 3 mg PO QHS PRN PRN PRN Reason: INSOMNIA Morphine Sulfate () 2 mg IV Q3H PRN PRN PRN Reason: Pain Score 6-10/10 Mycophenolate Mofetil (Cellcept) 1,000 mg PO BID [facility] Last Admin: 01/28/20 21:46 Dose: 1,000 mg Documented by: Nutritional Formula (Lactose Free) (Ensure Enlive) 120 ml PO 4X/DAY [facility] Last Admin: 01/28/20 21:45 Dose: 120 ml Documented by: Ondansetron HCl (Zofran) 4 mg IV Q8H PRN PRN PRN Reason: NAUSEA/VOMITING Last Admin: 01/28/20 05:56 Dose: 4 mg Documented by: Oxycodone HCl (Oxyir) 5 mg PO Q4H PRN PRN PRN Reason: Pain Score 4-5/10 Senna/Docusate Sodium (Senokot-S, Neema-Colace) 2 tablet PO BID PRN PRN PRN Reason: Constipation Sildenafil Citrate (Viagra) 50 mg PO BID [facility] Last Admin: 01/28/20 21:46 Dose: 50 mg Documented by: Sodium Chloride () 10 - 40 ml IV UD PRN PRN Reason: SALINE FLUSH Last Admin: 01/28/20 22:03 Dose: 10 ml Documented by: Sodium Chloride (Sodium Chloride) 1 gm PO TID [facility] Last Admin: 01/28/20 21:45 Dose: 1 gm Documented by: Vitamin E (Vitamin E) 400 units PO DAILY [facility] Last Admin: 01/28/20 08:55 Dose: 400 units Documented by: Discharge Diet: No Restrictions Discharge Activity: Return to Normal Activity Home Medications: Medications to take at Discharge Cyanocobalamin (Vitamin B-12) [Vitamin B-12] 1,000 mcg PO DAILY 01/26/20 Ergocalciferol [Vitamin D] 50,000 unit PO ROE 01/26/20 Mycophenolate Mofetil HCl [Mycophenolate Mofetil] 1,000 mg PO BID 01/26/20 Sildenafil Citrate 50 mg PO BID 01/26/20 Vitamin E 400 unit PO DAILY 01/26/20 Bumetanide [Bumex] 1 mg PO DAILY #30 tab 01/29/20 Sodium Chloride 1 gm PO BID #60 tab 01/29/20 Following Prescriptions Were Given to Patient: Bumetanide [Bumex] 1 mg PO DAILY #30 tab Transmission Status: Received by [facility] Sodium Chloride 1 gm PO BID #60 tab Transmission Status: Pending to [facility] Primary Care Physician: [place],Karie, MD [Primary Care Provider] - Please follow up with your Primary Care Physician in: in 5-7 days Disposition: Home Minutes spent on discharge:: 35 Patient Condition:: Stable Medical Necessity - Tobacco Use Smoking Status: Current every day smoker Tobacco Use: Cigarettes Meaningful Use Info Meaningful Use Diagnoses (Choose all that apply): None applicable Inpatient E&M: 61268 Disch Hosp
[2020-01-29 09:15] VITALS: BP 103/67; PULSE 87; RESP 18; TEMP 36.4; O2SAT 97
[2020-01-29] MEDS: Bumetanide 0.5 MG Tablet 1 MG PO (09:18)
[2020-01-29] MEDS: Cyanocobalamin 500 MCG Tablet 1000 MCG PO (09:18)
[2020-01-29] MEDS: Vitamin E 400 UNITS Capsule PO (09:19)
[2020-01-29] MEDS: Mycophenolate Mofetil 250 MG Capsule 1000 MG PO (09:20)
[2020-01-29] MEDS: Sodium Chloride 1 GM Tablet PO (09:20)
[2020-01-29] MEDS: SILDENAFIL CITRATE 25 MG TABLET 50 MG PO (09:26)
[2020-01-29 13:10] VITALS: BP 99/59; PULSE 84; RESP 16; TEMP 36.7; O2SAT 94
--- NOTE | 2020-01-29 15:54 | NURSING ---
pt and mother requested medical records of lab data, nephrology notes, and chest x-ray. medical records request form completed and faxed
--- NOTE | 2020-01-30 10:07 | CASEMGMT ---
Addendum entered by Claudette Gracia 01/30/20 14:58: Per Genia @ [facility], she did receive the faxed information. She states they will reach out to pt's mother today to schedule for start of care. Addendum entered by Claudette Gracia 01/30/20 10:15: Discharge instructions and summary faxed to [facility] at this time Original Note: NATALY QUARLES NOTE: Call received from [facility] who states needs [id number] documentation for [facility]. Dr Berger, the discharging MD, is not available to have this completed at this time. Call placed back to [facility] who states she will reach out to pt's double spindle shaper operator who originally sent referral to [facility] for pt to obtain this. Aydin COX RN CM
== END 2020-01-29 13:37 | disposition home health service (06) | DRG 426 ==
LOC: ED 15:28 → MS3 21:25
PROVIDERS: Pediatrics Pediatric Nephrology; Admitting Provider Internal Medicine; Emergency Provider Student in an Organized Health Care Education/Training Program; PCP Internal Medicine; Visit Provider Internal Medicine
DX: E22.2 Syndrome of inappropriate secretion of antidiuretic hormone (principal); M34.9 Systemic sclerosis, unspecified; D64.81 Anemia due to antineoplastic chemotherapy; E43 Unspecified severe protein-calorie malnutrition; Z68.22 Body mass index [BMI] 22.0-22.9, adult; R60.9 Edema, unspecified; I73.00 Raynaud's syndrome without gangrene; R13.10 Dysphagia, unspecified; I95.89 Other hypotension; T45.1X5A Adverse effect of antineoplastic and immunosuppressive drugs, initial encounter; Y92.9 Unspecified place or not applicable; F17.210 Nicotine dependence, cigarettes, uncomplicated; Z79.899 Other long term (current) drug therapy; Z92.21 Personal history of antineoplastic chemotherapy; Z85.6 Personal history of leukemia; Z92.3 Personal history of irradiation
CPT/HCPCS: 71045; 80048; 80053; 81001; 82436; 82570; 83735; 83930; 83935; 84133; 84156; 84295; 84300; 84443; 85025; 85027; 92507; 93005; 93970; 97110; 97116; 97162; 97166; 97530; 97535; 97802; 99251; 99284; 99406; J7030; A4216; G0463; J2405

== ENCOUNTER 2020-08-07 13:28 | Outpatient (RCR) | payer MEDICAID, SELFPAY ==
[2020-01-26 20:09] VITALS: BMI 22.0
[2020-08-07 14:25] VITALS: BP 127/49; PULSE 101; RESP 16; TEMP 36.6; BMI 19.3
--- NOTE | 2020-08-07 16:40 | RAD_ITS ---
STUDY: X-RAY - SACRUM/COCCYX REASON FOR EXAM: Female, 40 years old. PRESSURE ULCER OVER SACRUM TECHNIQUE: 3 view(s) of the sacrum and coccyx were obtained. COMPARISON: None. FINDINGS: Normal bilateral sacroiliac joints. There is a defect in the soft tissues posterior to the distal sacrum consistent with a decubitus ulcer. There is also radiolucency of the posterior aspect of the distal sacrum worrisome for osteomyelitis. Correlation with CT would be useful. Normal sacrococcygeal junction with a normal angulation. Normal coccygeal segments. RAD/Sacrum-Coccyx min 2 Views IMPRESSION: Suspect sacral decubitus ulcer with osteomyelitis of the posterior aspect of the distal sacrum in correlation with CT or MRI would be useful. Electronically Signed: Huy Gaming MD at 8:19 EST Tel , Service support ,
--- NOTE | 2020-08-07 17:34 | PCM.WC.PN ---
(1) Decubitus ulcer of sacral region, stage 3 Status: Acute Code(s): L89.153 - Pressure ulcer of sacral region, stage 3 (2) Scleroderma progressive Status: Chronic Code(s): M34.0 - Progressive systemic sclerosis (3) Protein-calorie malnutrition, severe Status: Chronic Code(s): E43 - Unspecified severe protein-calorie malnutrition Type of Wound Date of Service: 08/09/20 Chief Complaint: She has a non-healing wound of the sacrum/coccyx. It is painful and will not heal. She was recently in [facility] for the wound but there has been no improvement. She recently had a corpak placed for feeding to improve nutrition and gain weight. She has dysphagia. Diagnosed with scleroderma 1 year ago. It has been rapidly progressive. Denies any FH of scleroderma. Progress of Wound: She will not sleep in a bed and so she has been sleeping in a recliner because it is more comfortable. She is constantly sitting and can not turn over. She rarely gets up to ambulate even though she and her SO state she is able to ambulate. She is in a lot of pain. She has a hospital bed ordered but it has not as of yet been delivered. She does not know if there is a low air loss mattress. She is being treated by rheumatology at the [facility] and is currently on [employer]. she is living with her mother who is her POA. She and her SO have 1 child together and until just recently they were living together. - Physical Exam Vital Signs Temp Pulse Resp BP 98 F 101 H 16 127/49 H 08/07/20 14:25 08/07/20 14:25 08/07/20 14:25 08/07/20 14:25 General: Alert, Oriented x3, Cooperative, - - emaciated and pale HEENT: Atraumatic, PERRLA, EOMI, Normocephalic Oral: Dry Mucosa Lungs: Clear to auscultation, Diminished Cardiovascular: Regular Rhythm, Normal S1, Normal S2, No murmurs, No rub noted, No Gallop, Tachycardic Abdomen: Bowel Sounds Present, Soft, Non-Distended, - - abd is very flat Extremities: No edema, Diminished Peripheral Pulses, - - tight sausage shaped digits. Fingers are contracted. Ape hands. Wound Measurements and Assessment WC - Nurse 1 - General Ulcer Measurement Start: 07/24/20 08:28 Freq: Status: Active Protocol: Activity Type Activity Date Activity User E-Sign Co-Sign Detail Recorded Client Recorded Date Recorded By Document 08/07/20 14:25 [facility] [id number] 08/07/20 14:44 [facility] 08/07/20 14:25 Wound Center Nurse 1 [Ulcer Assessment] #1- SACRAL -Combined with other wound No -Current Size (cm) - Length 1 -Current Size (cm) - Width 0.8 -Current Size (cm) - Depth 0.1 -Total Square Cm 0.8 -Date of Last Picture (Recall this 08/07/20 field) -Photo Taken Yes -Epithelialization None Present -Tunneling No -Undermining/Tunneling No -Circular Undermining No -Exudate Amt Medium -Exudate Type Serosanguineous -Wound Margin Distinct, Outline Attached -Granulation Amt None Present (0 %) -Slough/Fibrin Yes -Necrosis Amt Large (67-100%) -Necrotic Tissue Type Adherent Slough -Texture (Abbe-wound Skin Appearance) Assessed, Scarring -Moisture (Abbe-wound Skin Appearance Assessed ) -Color (Abbe-wound Skin Appearance) Assessed, Erythema -Temperature (Abbe-wound Skin No Abnormality Appearance) (Pt Warm) -Tenderness on Palpation (Abbe-wound No Skin Appearance) -Ulcer Cleansing Rinsed/ Irrigated with Saline -Foul Odor after Cleansing No -Anesthetic Used 5% Lidocaine Gel - Nurse 2 - General Ulcer CM Notes Start: 07/24/20 08:28 Freq: Status: Active Protocol: Activity Type Activity Date Activity User E-Sign Co-Sign Detail Recorded Client Recorded Date Recorded By Document 08/07/20 15:30 MW [id number] 08/07/20 15:46 MW 08/07/20 15:30 Wound Center Nurse 2 [Procedure/Treatment] -Time 15:38 -Correct Patient Yes -Correct Side, Site, Position Yes -Correct Procedure Yes -Procedure Performed Yes -Type of Procedure Debridement -Clinical Debridement Subcutaneous -Tissue Removed Subcutaneous -Post Debridement (cm) - Length 1.1 -Post Debridement (cm) - Width 0.8 -Post Debridement (cm) - Depth 0.1 -Total Square (Post) (cm) 0.88 -Area of Debridement (cm) - Length 1.1 -Area of Debridement (cm) - Width 0.8 -Total Square (Area) (cm) 0.88 -Tunneling No -Undermining/Tunneling No -Circular Undermining No -Wound/Ulcer Outcome Not Healed -Ulcer Cleansing Rinsed/ Irrigated with Saline -Foul Odor after Cleansing No -Bioengineered Tissue No -Bleeding Controlled with Pressure -Offloading No -Treatment Response Procedure Tolerated Well -Debridement - Subq, 1st 20sq cm Yes [See Physician Procedure note for Specifics] Pain Scale: 0-10 Numeric [Pain] -Is Patient Pain Free? Yes WC - Nurse 3 - General Ulcer D/C NN Start: 07/24/20 08:28 Freq: Status: Active Protocol: Activity Type Activity Date Activity User E-Sign Co-Sign Detail Recorded Client Recorded Date Recorded By Document 08/07/20 15:55 MW [id number] 08/07/20 15:56 MW 08/07/20 15:55 Wound Care Nurse 3 [Wound Dressing] #1- SACRAL -Ulcer Cleansing Rinsed/ Irrigated with Saline -Foul Odor after Cleansing No -Negative Pressure Wound Therapy N/A -Primary Dressing Applied Mepilex Border -Mepilex Border 2 [Post Procedure Tolerated] -Treatment Response Procedure Tolerated Well Teaching: Wound Center [Wound Center Education] (Items with an * have Printed Materials Available- Please identify what is given to patient under the Teaching materials given to patient and caregiver Section. Dressing Your Wound -Person Taught Patient, Significant Other -Teaching Method Discussion, Demonstration -Response to teaching Verbalize understanding - Visit Discharge [Visit Discharge Information] -Discharge Condition Stable -Ambulatory Status Wheelchair -Transportation Private Auto -Accompanied by GUEVARA -Medication Reconcilliation completed No & provided to patient/care provider -Clinical Summary of Care Provided Yes The wound is over the distal sacrum/coccyx. Please see above for the dimensions. The base is 100% slough with no granulation tissue. there is no abbe-wound erythema and no purulent DC. There is serosanguineous discharge. There is no odor. Located on the midline between the anus and the decubitus ulcer is a polypoid type round structure which is not tender to palpate and is not fluctuant. There is a small rim of blood around the lesion and there is no purulent Dc and no erythema or increased warmth to touch. The skin is literally stretched over the bone adjacent to the wound. the decubitus is a stage 3 with no bone visible and no tunnelling or undermining. I can feel the bone right beneath my examining finger. No suspected fistulous tracts evident from the anus to the wound. She tolerated the exam well. Debridement Note Post-Debridement Measurements/Treatment SYLVESTER - Nurse 2 - General Ulcer CM Notes Start: 07/24/20 08:28 Freq: Status: Active Protocol: Activity Type Activity Date Activity User E-Sign Co-Sign Detail Recorded Client Recorded Date Recorded By Document 08/07/20 15:30 MW [id number] 08/07/20 15:46 MW 08/07/20 15:30 Wound Center Nurse 2 #1- SACRAL -Time 15:38 -Correct Patient Yes -Correct Side, Site, Position Yes -Correct Procedure Yes -Procedure Performed Yes -Type of Procedure Debridement -Clinical Debridement Subcutaneous -Tissue Removed Subcutaneous -Post Debridement (cm) - Length 1.1 -Post Debridement (cm) - Width 0.8 -Post Debridement (cm) - Depth 0.1 -Total Square (Post) (cm) 0.88 -Area of Debridement (cm) - Length 1.1 -Area of Debridement (cm) - Width 0.8 -Total Square (Area) (cm) 0.88 -Tunneling No -Undermining/Tunneling No -Circular Undermining No -Wound/Ulcer Outcome Not Healed -Ulcer Cleansing Rinsed/ Irrigated with Saline -Foul Odor after Cleansing No -Bioengineered Tissue No -Bleeding Controlled with Pressure -Offloading No -Treatment Response Procedure Tolerated Well -Debridement - Subq, 1st 20sq cm Yes Pain Scale: 0-10 Numeric Is Patient Pain Free? Yes SYLVESTER - Nurse 3 - General Ulcer D/C NN Start: 07/24/20 08:28 Freq: Status: Active Protocol: Activity Type Activity Date Activity User E-Sign Co-Sign Detail Recorded Client Recorded Date Recorded By Document 08/07/20 15:55 MW [id number] 08/07/20 15:56 MW 08/07/20 15:55 Wound Care Nurse 3 #1- SACRAL -Ulcer Cleansing Rinsed/ Irrigated with Saline -Foul Odor after Cleansing No -Negative Pressure Wound Therapy N/A -Primary Dressing Applied Mepilex Border -Mepilex Border 2 Treatment Response Procedure Tolerated Well Teaching: Wound Center Dressing Your Wound -Person Taught Patient, Significant Other -Teaching Method Discussion, Demonstration -Response to teaching Verbalize understanding WC - Visit Discharge Discharge Condition Stable Ambulatory Status Wheelchair Transportation Private Auto Accompanied by GUEVARA Medication Reconcilliation completed & No provided to patient/care provider Clinical Summary of Care Provided Yes Wound debrided: stage 3 sacral decubitus ulcer Type of Debridement: Excisional debridement Anesthesia Used: 4% Lidocaine Solution Depth: in the subcutaneous layer Percentage of wound debrided: 100 Instrument Used: 5mm curette Severity: Necrosis of Muscle Amount of bleeding with debridement: Mild Bleeding Controlled with: Pressure Patient tolerated procedure well Assessment/Plan Plain XRAY of the sacrum and coccyx was ordered and also lab which will be drawn by the [facility] nurse when she accesses the recently placed port for the first time. Active Problems Scleroderma progressive (Chronic) Decubitus ulcer of sacral region, stage 3 (Acute) Assessment: 1. Stage III sacral decubitus ulcer. 2. Rapidly progressive scleroderma. 3. Severe protein/calorie malnutrition. 4. Dysphagia-recently had a CorPak placed for nutrition and also had a port placed which I presume is for TPN. Plan: 1. get the hospital bed delivered and make sure a loss air loss mattress comes with it. 2. Plain XRAY of the sacrum and the coccyx looking for bone destruction. 3. Lab later this week to be drawn by [facility] after the port is accessed. 4. Hydrogel and cover with dressing and tape to a Mepilex border. 5. Discuss starting a multivitamin at the next visit and also consider adding Zinc and Vitamin C to the Vitamin D, B12 and vitamin E she already takes. 6. RTC in 1 week. 7. request records from [facility] (recent hospital admission) and the PCP. 8. The pt and her CO were educated on wound healing and I stressed that off loading is critical if this wound is going to heal. She has quit smoking which is good. I spent a total of 50 minutes with hx taking, examination, debridement and education Office Visits / Consults: [id number] OV L4 Est
--- NOTE | 2020-08-10 15:08 | WC ---
Message left for Yina RN at [facility] health to discuss patient's wound care supplies and a hospital bed that patient stated was already ordered and to be delivered. Requested Yina return call to coordinate and address patient's needs and wound care.
--- NOTE | 2020-08-14 16:38 | WC ---
Message left for home health nurse Yina to return call concerning dressing supplies @ 1215. [facility] @ 1220. Foam dressing ordered yesterday per home health. Patient to receive 1 box (10 sheets). Patient insurance does not allow anymore foam dressing until 09/13/20. Order placed for ABD pads and medipore tape to be delivered to patient. Spoke to Patient and her mom to update on supply order.
== END 2020-08-12 23:59 ==
LOC: WC 13:28
PROVIDERS: PCP Internal Medicine; Referring Provider Internal Medicine; Visit Provider Internal Medicine
DX: L89.153 Pressure ulcer of sacral region, stage 3 (principal); M34.9 Systemic sclerosis, unspecified; E43 Unspecified severe protein-calorie malnutrition; R13.10 Dysphagia, unspecified; Z90.3 Acquired absence of stomach [part of]; Z87.891 Personal history of nicotine dependence
CPT/HCPCS: 11042; 72220; 99213; G0463

== ENCOUNTER 2020-11-02 12:04 | Outpatient (RCR) | payer MEDICAID, SELFPAY ==
[2020-08-21 14:29] VITALS: BMI 19.3
== END 2020-12-07 23:59 ==
LOC: IMMUN 12:04
PROVIDERS: PCP Internal Medicine; Visit Provider Family Medicine
DX: Z23 Encounter for immunization (principal)
CPT/HCPCS: 0001A; 91300

== ENCOUNTER 2022-09-27 23:15 | Observation (INO) | payer MEDICARE, MEDICAID, SELFPAY ==
[2022-09-27 23:17] VITALS: BP 199/98; PULSE 82; RESP 20; TEMP 36.4; O2SAT 100; BMI 27.0
--- NOTE | 2022-09-27 23:28 | EKG12_ITS ---
Test Reason : DYSRHYTHMIA Blood Pressure : / mmHG Vent. Rate : 084 BPM Atrial Rate : 084 BPM P-R Int : 170 ms QRS Dur : 092 ms QT Int : 386 ms P-R-T Axes : 031 017 114 degrees QTc Int : 456 ms Normal sinus rhythm Moderate voltage criteria for LVH, may be normal variant ( R in aVL , Kathryn product ) T wave abnormality, consider inferolateral ischemia Abnormal ECG When compared with ECG of 26-JAN-2020 15:15, T wave inversion now evident in Lateral leads Confirmed by VENECIA HERNANDEZ ([id number]), business editor GERARD ORTIZ ([id number]) on 10/01/2022 10:33:38 AM Referred By: SHABANA Confirmed By:VENECIA HERNANDEZ
--- NOTE | 2022-09-27 23:29 | EDS_ITS ---
HPI History of Present Illness Chief Complaint: Back Informant: patient Narrative Narrative: Patient is a 42 term female with complex medical history including scleroderma, anemia, hyponatremia, hypokalemia and severe protein calorie malnutrition. She presenting with sudden onset of chest and back pain. She states it is in her center of her chest/epigastric region and radiates to her back. She does not seem in pain figurines and has mild pain in her chest that worsened and so to go into her back. She describes it as achy. The start about an hour and half prior to arrival. She notes she had 1 episode before but it went away spontaneously. She denies any other symptoms including diaphoresis, nausea, difficulty breathing or cough. She went to her daughter's sports meet today and ate [employer] for dinner tonight. Does not drink alcohol. States she has mostly been taking her medicines but does not take her potassium today. [facility] Medical History Raynaud disease Scleroderma Home Medications cyanocobalamin (vitamin B-12) 1,000 mcg tablet 1,000 mcg PO DAILY supplement 01/26/20 [History Last Taken 01/26/20] mycophenolate mofetil (HCl) 500 mg intravenous solution 1,000 mg PO BID 01/26/20 [History Last Taken 01/26/20] sildenafil 50 mg tablet 60 mg PO DAILY circulation 01/26/20 [History Last Taken 01/26/20] duloxetine 30 mg capsule,delayed release 30 mg PO BID 09/27/22 [History Last Taken Unknown] folic acid 1 mg tablet 1 mg PO BID 09/27/22 [History Last Taken Unknown] pantoprazole 40 mg tablet,delayed release 40 mg PO BID 09/27/22 [History Last Taken Unknown] potassium chloride 20 mEq/15 mL oral liquid 20 meq PO SUTUTHSA 09/27/22 [History Last Taken Unknown] sildenafil 50 mg tablet 40 mg PO QHS 09/27/22 [History Last Taken Unknown] topiramate 25 mg tablet 25 mg PO BID 09/27/22 [History Last Taken Unknown] Allergy/AdvReac Type Severity Reaction Status Date / Time No Known Allergies Allergy Verified 08/07/20 14:45 Family History Other Hypertension Surgical History Hx of tonsillectomy Previous section Social History Smoking Status: Former smoker ROS ROS ED Constitutional Constitutional ED: Denies chills or fever(s) Eyes Eyes: Denies change in vision Cardiovascular Cardiovascular: Reports chest pain Respiratory/Chest Respiratory/Chest: Denies cough or dyspnea Gastrointestinal Gastrointestinal: Reports abdominal pain; Denies diarrhea, nausea or vomiting Musculoskeletal Musculoskeletal: Denies arthralgias or myalgias Integumentary Reports other Details: Chronic skin changes from scleroderma Neurologic Neurologic: Denies weakness Psychiatric Psychiatric: Denies anxiety or depression Hematologic/Lymphatic Hematologic/Lymphatic: Denies easy bleeding or easy bruising EXAM Physical Exam Const Vital Signs: 09/27/22 23:17 09/27/22 23:28 09/28/22 01:22 Temperature 97.5 F L Temperature Source Oral Pulse Rate 82 96 Respiratory Rate 20 H 18 Respiratory Effort Respiratory Pattern Blood Pressure 199/98 H 183/82 H Blood Pressure Mean 131 115 Pulse Ox 100 95 Oxygen Delivery Method Nasal Cannula Room Air Room Air Oxygen Flow Rate (L/min) 4 09/28/22 01:26 09/28/22 02:37 09/28/22 03:29 Temperature Temperature Source Pulse Rate 92 109 H Respiratory Rate 18 18 Respiratory Effort Normal Non-Labored Respiratory Pattern Normal Blood Pressure 173/86 H 182/98 H Blood Pressure Mean 115 126 Pulse Ox 94 97 Oxygen Delivery Method Room Air Room Air Oxygen Flow Rate (L/min) Positive well nourished and well developed Constitutional Narrative: Chronically ill-appearing General Appearance ED: well developed HEENT Reports dry mucous membranes Mouth ED: Yes dry mucous membranes Mouth: dry mucous membranes Eyes PERRL and EOMs intact bilaterally Neck supple and no JVD Chest Wall inspection of chest normal and palpation of chest normal Chest Narrative: Port present in the right anterior chest wall Resp normal respiratory effort and clear to auscultation bilaterally Cardio regular rate, regular rhythm and no murmurs GI normal to inspection, nondistended, normoactive bowel sounds and non-tender GI Narrative: Negative Woodson sign Auscultation: normoactive bowel sounds Extremity Extremity Narrative: Chronic appearing edema. Contractures of the fingers consistent with scleroderma. 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 On arrival she is quite hypertensive with a blood pressure of 199/98. History is complicated because of her history of scleroderma. Her EKG does show T wave inversions which are new from a couple years ago. My concern is for acute aortic dissection however patient is refusing any contrasted study because she has been told she cannot have contrast with her scleroderma. I checked her kidney function which is normal with a creatinine of 0.46. 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 I did speak with on-call rheumatology, Dr. Rojas. She states the patient's baseline creatinine is 0.3 so this is not too much of her relative renal insufficiency. She states that we should consider scleroderma renal crisis and should look for schistocytes on her peripheral smear. If this is present she recommends giving captopril for hypertension. She does think that a CTA to rule out aortic dissection is indicated and this will be ordered. CT does not show acute aortic dissection but does show a distended gallbladder. Patient was given a dose of captopril for her hypertension and does have improvement with it. She does not have schistocytes or signs of a microvascular hemolytic anemia. I do not think she requires emergent transfer for rheumatology evaluation. Right upper quadrant ultrasound is obtained which does show mild dilation of the common bile ducts as well as a distended gallbladder however patient does not have any pain at this time, has no leukocytosis, transaminitis or elevation of her bilirubin. I have a low suspicion for biliary colic, cholecystitis or choledocholithiasis based on these normal labs and her physical exam. Patient will be admitted for further cardiac evaluation given her chest pain with EKG changes and elevated troponin. She will be given continued IV fluids to help her kidneys flush out the contrast. Case is discussed with admitting physician, Dr. Green who accepts the patient. Lab Data Labs: Laboratory Results - last 24 hr 09/27/22 09/27/22 09/28/22 23:42 23:42 02:05 WBC 8.1 RBC 3.95 L Hgb 11.3 L Hct 36.4 L MCV 92.2 MCH 28.6 MCHC 31.0 L RDW Std Deviation 46.7 H RDW Coeff of Maryann 13.7 Plt Count 244 MPV 11.2 Immature Gran % (Auto) 0.500 Neut % (Auto) 59.9 Lymph % (Auto) 24.0 Mccurt[place] % (Auto) 11.5 H Eos % (Auto) 3.5 Baso % (Auto) 0.6 Absolute Neuts (auto) 4.9 Absolute Lymphs (auto) 1.94 Nucleated RBC % 0 Differential Comment SCANNED Sodium 137 Potassium 3.2 L Chloride 110 H Carbon Dioxide 22.0 Anion Gap 5 BUN 15 Creatinine 0.46 L Estim Creat Clear Calc 115.60 Est GFR (MDRD) Af Amer 194 Est GFR (MDRD) Non-Af 160 BUN/Creatinine Ratio 32.9 H Glucose 102 Calcium 8.6 Total Bilirubin 0.20 AST 14 L ALT 13 Alkaline Phosphatase 59 Troponin I High Sens 81 H 80 H Total Protein 7.3 Albumin 3.2 Globulin 4.1 Albumin/Globulin Ratio 0.8 L Lipase 61 Radiography Diagnostic Testing: Clinical Impression(s) from Imaging Studies Chest/Abdomen/Pelvis CTA 09/28/22 00:05 IMPRESSION: 1. No evidence for aortic aneurysm or dissection. No evidence for pulmonary embolism. 2. No evidence for stenosis or occlusion of large vessels in the abdomen or pelvis. 3. Distended and thick-walled gallbladder. Consider gallbladder ultrasound for further evaluation. 4. Mild splenomegaly. 5. Small nonobstructive right renal calculi. No demonstrated ureteral calculi or hydronephrosis. 6. Port-A-Cath in place, with tip in the right atrium. Electronically Signed: Wesley Gandhi MD at 3:27 EDT Reading Location ID and State: [facility] / [place] , Service support , Gallbladder Ultrasound 09/28/22 04:22 IMPRESSION: 1. Multiple small shadowing stones in the gallbladder. The gallbladder is distended, but there is mild prominence of the wall measuring up to 3.6 mm. Findings could indicate early evidence of acute cholecystitis. 2. Mild dilation of the common bile duct up to 7.4 mm, which could indicate a distal common duct stone. Electronically Signed: Aniket Lucas MD at 6:22 EDT , Discharge Plan Dx/Rx/DC Orders Clinical Impression: Chest pain, Scleroderma progressive, Elevated troponin, Hypertension Disposition Disposition: Acute Care Hospital [facility] Discharge Date/Time: 09/28/22 07:36
[2022-09-27] MEDS: Morphine 4 MG/ML Syringe IV (23:35)
[2022-09-27] MEDS: Ondansetron 4 MG/2 ML Vial IV (23:36)
[2022-09-27] MEDS: 0.9% Normal Saline 1,000 ML 150 ML IV (23:37)
[2022-09-27 23:49] LABS: Absolute Lymphocyte Count 1.94 X10^3/uL (0.83-4.51); Absolute Neutrophil Count 4.9 X10^3/uL (2.0-7.7); Basophil# 0.05 X10^3/uL; Basophil% 0.6 % (0-1); Eosinophil# 0.28 X10^3/uL; Eosinophils% 3.5 % (0-5); Hematocrit 36.4 % (37-47); Hemoglobin 11.3 g/dL (12.0-15.0); Lymphocyte # 1.94 X10^3/ul (0.83-4.51); Mean Corpuscular Hgb 28.6 pg (27.0-32.0); Mean Corpuscular Volume 92.2 fL (81-99); Mean Platelet Vol. 11.2 fl (6.2-12.0); Monocyte# 0.93 X10^3/uL; Monocyte% 11.5 % (0-10); NRBC Flagged by Analyzer 0 % (0-5); Neutrophil # 4.86 X10^3/uL (2.7-7.7); Neutrophil % 59.9 % (47-70); Platelet Count 244 K/mm3 (150-450); RBC Distribution Width CV 13.7 % (11.6-14.6); RBC Distribution Width SD 46.7 fl (35.1-43.9); Red Blood Count 3.95 M/mm3 (4.2-5.4); White Blood Count 8.1 K/mm3 (4.4-11.0)
[2022-09-28] VITALS (8 sets, daily range): BP systolic 148–183; BP diastolic 70–98; PULSE 85–109; RESP 14–20; TEMP 36.6–36.7; O2SAT 94–98; BMI 27.1
--- NOTE | 2022-09-28 00:05 | CT_ITS ---
EXAM: CT ANGIOGRAPHY CHEST, ABDOMEN AND PELVIS WITH INTRAVENOUS CONTRAST CLINICAL INDICATION: dissection study, chest and back pain dissection study, chest and back pain TECHNIQUE: Helically acquired angiography images were obtained of the chest, abdomen and pelvis with intravenous contrast. This CT exam was performed using one or more of the following dose reduction techniques: automated exposure control, adjustment of the mA and/or kV according to patient size, and/or use of iterative reconstruction technique. This report was created using [employer] report generation technology. MIP reconstructed images were created and reviewed. CONTRAST: IV 100mL Isovue-370 RADIATION DOSE: CTDIvol = 8.01 mGy, DLP = 787.56 mGy-cm COMPARISON: None. FINDINGS: VASCULATURE: AORTA: There is minimal atherosclerotic calcification of the abdominal aorta. Normal in caliber. No dissection. PULMONARY ARTERIES: Unremarkable. Normal in caliber. No obvious central pulmonary embolism although this study was not performed with the pulmonary embolism protocol. GREAT VESSELS OF AORTIC ARCH: Unremarkable. Normal in caliber. No dissection. CELIAC TRUNK AND MESENTERIC ARTERIES: No acute findings. No occlusion or significant stenosis. No dissection. RENAL ARTERIES: No acute findings. No occlusion or significant stenosis. No dissection. ILIAC ARTERIES: No acute findings. No occlusion or significant stenosis. No dissection. CHEST: LUNGS AND PLEURAL SPACES: There is a small centrilobular emphysematous bulla in the right upper lobe. There are no demonstrated pulmonary infiltrates. No mass. No pleural effusion or thickening. No pneumothorax. HEART: Unremarkable. Heart size is normal. No pericardial effusion. MEDIASTINUM: Unremarkable. No mediastinal or hilar adenopathy. Esophagus is unremarkable. No hiatal hernia. THYROID: Unremarkable. No thyroid lesions. ABDOMEN: LIVER: Unremarkable. Homogeneous. No focal mass. GALLBLADDER AND BILE DUCTS: The gallbladder is distended, with short axis diameter of 5 cm and is thick walled. No calcified gallstones. No intra- or extrahepatic biliary ductal dilation. PANCREAS: Unremarkable. No focal cystic or solid mass. SPLEEN: The spleen is mildly enlarged. ADRENALS: Unremarkable. No nodules. KIDNEYS AND URETERS: A 3 mm and 2 mm nonobstructive right renal calculi. There are no demonstrated ureteral calculi or hydronephrosis. Normal renal size and position. STOMACH AND BOWEL: Unremarkable. No stomach or bowel distention. No focal inflammatory change. PELVIS: APPENDIX: A normal appendix is seen on axial images 183-190. BLADDER: Unremarkable. REPRODUCTIVE: Unremarkable as visualized. No mass. CHEST, ABDOMEN and PELVIS: INTRAPERITONEAL SPACE: Unremarkable. No ascites or other fluid collection. No free air. BONES/JOINTS: See above. SOFT TISSUES: Unremarkable. No discrete abdominal or pelvic wall hernia. LYMPH NODES: Mildly hyperplastic mesenteric lymph nodes in the mid abdomen and right lower quadrant of the abdomen, which may represent mesenteric lymphadenitis. There are numerous mildly hyperplastic mesenteric lymph nodes within the midabdomen and right lower quadrant of the abdomen, which are axis diameters ranging up to 7 mm. TUBES, LINES AND DEVICES: There is a right internal jugular Port-A-Cath with its tip in the right atrium. CT/CTA Chst, Abd, Pel W and/or WO IMPRESSION: 1. No evidence for aortic aneurysm or dissection. No evidence for pulmonary embolism. 2. No evidence for stenosis or occlusion of large vessels in the abdomen or pelvis. 3. Distended and thick-walled gallbladder. Consider gallbladder ultrasound for further evaluation. 4. Mild splenomegaly. 5. Small nonobstructive right renal calculi. No demonstrated ureteral calculi or hydronephrosis. 6. Port-A-Cath in place, with tip in the right atrium. Electronically Signed: Wesley Gandhi MD at 3:27 EDT Reading Location ID and State: [facility] / [place] , Service support ,
[2022-09-28 00:23] LABS: ALB/GLOB Ratio 0.8 RATIO (0.9-2.4); AST(SGOT) 14 U/L (15-37); Alanine Aminotransfer ALT/SGPT 13 U/L (13-56); Albumin, Serum 3.2 g/dL (3.2-5.0); Alkaline Phosphatase 59 U/L (45-117); Anion Gap 5 (5-15); BUN 15 mg/dL (7-18); BUN/Creat Ratio 32.9 RATIO (10-20); Calcium,Total 8.6 mg/dL (8.5-10.1); Chloride 110 mmol/L (98-107); Creatinine, Serum 0.46 mg/dL (0.55-1.02); EST Glomerular Filtration Rate 160 mL/min (>60); Est Glom Filt Rate - Afr Amer 194 mL/min (>60); Globulin 4.1 g/dL (2.2-4.2); Glucose 102 mg/dL (74-106); Lipase 61 U/L (13-75); Potassium 3.2 mmol/L (3.5-5.1); Protein, Total 7.3 g/dL (6.4-8.2); Sodium Level 137 mmol/L (136-145); Troponin-I HS (w/2H Reflex) 81 pg/mL (3.0-54.0)
--- NOTE | 2022-09-28 01:12 | ED.RN ---
pt has a power port but tubing is not power tubing. spoke with pt and family about changing to power tubing but family does not want to use IV contrast due to pt medical history and kidneys. Staff explained reason behind need for CT with contrast to rule out aortic dissection family still did not want test completed. Doctor Lopez updated.
[2022-09-28 01:47] LABS: Reflex Troponin-HS? (from REC) Y
--- NOTE | 2022-09-28 01:58 | ED.RN ---
family notified staff that they spoke with a [facility] commissioner of officials pulp grinder feeder and they didn't not want the ct contrast given. paged [facility] pulp grinder feeder commissioner of officials for dr quinones.
--- NOTE | 2022-09-28 02:39 | ED.RN ---
discharged accessed pt port tubing and reaccessed with power port tubing.
[2022-09-28 02:48] LABS: Troponin-I HS 80 pg/mL (3.0-54.0)
[2022-09-28 03:27] LABS: Differential Comment SCANNED
--- NOTE | 2022-09-28 04:22 | US_ITS ---
EXAM: US ABDOMEN LIMITED, RIGHT UPPER QUADRANT CLINICAL INDICATION: abd pain TECHNIQUE: Real-time ultrasound of the right upper quadrant with image documentation. This report was created using [employer] report generation technology. COMPARISON: None. FINDINGS: LIVER: Unremarkable. There is normal echotexture. No focal hepatic lesion. No intrahepatic biliary ductal dilation. GALLBLADDER: Multiple small shadowing stones in the gallbladder. The gallbladder is distended, but there is mild prominence of the wall measuring up to 3.6 mm. No pericholecystic fluid. Negative sonographic Woodson''s sign. COMMON BILE DUCT: Mildly dilated, measuring 7.4 mm. PANCREAS: Unremarkable as visualized. No focal abnormality is demonstrated in the pancreas. No pancreatic ductal dilatation. RIGHT KIDNEY: Unremarkable. There is no hydronephrosis. No shadowing calculus. No focal lesion or perinephric collection is demonstrated. US/Gallbladder IMPRESSION: 1. Multiple small shadowing stones in the gallbladder. The gallbladder is distended, but there is mild prominence of the wall measuring up to 3.6 mm. Findings could indicate early evidence of acute cholecystitis. 2. Mild dilation of the common bile duct up to 7.4 mm, which could indicate a distal common duct stone. Electronically Signed: Aniket Lucas MD at 6:22 EDT ,
[2022-09-28] MEDS: 0.9% Normal Saline 1,000 ML 150 ML IV (06:49)
[2022-09-28] MEDS: Aspirin 325 MG Tablet PO (06:49)
--- NOTE | 2022-09-28 06:51 | EKG12_ITS ---
Test Reason : CP Blood Pressure : / mmHG Vent. Rate : 083 BPM Atrial Rate : 083 BPM P-R Int : 176 ms QRS Dur : 096 ms QT Int : 408 ms P-R-T Axes : 061 014 106 degrees QTc Int : 479 ms Normal sinus rhythm Minimal voltage criteria for LVH, may be normal variant ( Maxwell product ) Nonspecific T wave abnormality Prolonged QT Abnormal ECG When compared with ECG of 27-SEP-2022 23:39, MANUAL COMPARISON REQUIRED, DATA IS UNCONFIRMED Confirmed by VENECIA HERNANDEZ ([id number]), international editorial producer GERARD ORTIZ ([id number]) on 10/01/2022 10:23:37 AM Referred By: Confirmed By:VENECIA HERNANDEZ
--- NOTE | 2022-09-28 06:52 | PCM.HP.STD ---
HPI - General General Date of Admission: 09/28/22 Date of Service: 09/28/22 Chief Complaint: chest pain HPI Narrative ODILIA DOS SANTOS, is a 42 F with a significant history of scleroderma who presents to the emergency department with chest pain that started about an hour before presentation. The chest pain started at rest. She describes her chest pain as aching. She denies any aggravating or ameliorating factors to the chest pain. Severity of pain is 8 out of 10. She denies any nausea or vomiting. She denies any shortness of breath. The chest pain radiated to her back. Chest pain resolved at the emergency department. At the emergency department, ED doc discussed the case with a/c tech at outside hospital who recommended peripheral blood smear and if there was no schistocytes then scleroderma renal crisis has been ruled out and patient can be admitted to [facility]. Because peripheral blood smear did not show schistocytes and because patient creatinine is at baseline decision was made for patient to stay at the hospital. [facility] Medical History Raynaud disease Scleroderma Home Medications cyanocobalamin (vitamin B-12) 1,000 mcg tablet 1,000 mcg PO DAILY supplement 01/26/20 [History Last Taken 01/26/20] mycophenolate mofetil (HCl) 500 mg intravenous solution 1,000 mg PO BID 01/26/20 [History Last Taken 01/26/20] sildenafil 50 mg tablet 60 mg PO DAILY circulation 01/26/20 [History Last Taken 01/26/20] duloxetine 30 mg capsule,delayed release 30 mg PO BID 09/27/22 [History Last Taken Unknown] folic acid 1 mg tablet 1 mg PO BID 09/27/22 [History Last Taken Unknown] pantoprazole 40 mg tablet,delayed release 40 mg PO BID 09/27/22 [History Last Taken Unknown] potassium chloride 20 mEq/15 mL oral liquid 20 meq PO SUTUTHSA 09/27/22 [History Last Taken Unknown] sildenafil 50 mg tablet 40 mg PO QHS 09/27/22 [History Last Taken Unknown] topiramate 25 mg tablet 25 mg PO BID 09/27/22 [History Last Taken Unknown] Allergy/AdvReac Type Severity Reaction Status Date / Time No Known Allergies Allergy Verified 08/07/20 14:45 Family History Other Hypertension Surgical History Hx of tonsillectomy Previous section Social History Smoking Status: Former smoker ROS ROS Narrative Pertinent positives and pertinent negatives as noted in HPI. All other systems were reviewed and are negative Vital Signs Vital Signs Vital Signs: 09/27/22 23:17 09/27/22 23:28 09/28/22 01:22 Temperature 97.5 F L Temperature Source Oral Pulse Rate 82 96 Respiratory Rate 20 H 18 Respiratory Effort Respiratory Pattern Blood Pressure 199/98 H 183/82 H Blood Pressure Mean 131 115 Pulse Ox 100 95 Oxygen Delivery Method Nasal Cannula Room Air Room Air Oxygen Flow Rate (L/min) 4 09/28/22 01:26 09/28/22 02:37 09/28/22 03:29 Temperature Temperature Source Pulse Rate 92 109 H Respiratory Rate 18 18 Respiratory Effort Normal Non-Labored Respiratory Pattern Normal Blood Pressure 173/86 H 182/98 H Blood Pressure Mean 115 126 Pulse Ox 94 97 Oxygen Delivery Method Room Air Room Air Oxygen Flow Rate (L/min) 09/28/22 06:49 Temperature 97.9 F Temperature Source Temporal Pulse Rate 91 Respiratory Rate 18 Respiratory Effort Respiratory Pattern Blood Pressure 160/81 H Blood Pressure Mean 107 Pulse Ox 98 Oxygen Delivery Method Room Air Oxygen Flow Rate (L/min) Weight Weight: 62.8 kg Body Mass Index (BMI) 27.0 Physical Exam Narrative Physical exam: General: Well-nourished, well-developed. Head: Normocephalic, atraumatic, no tenderness Eyes: Vision is grossly intact. EOMI ENT, no trauma, moist mucous membranes, no rhinorrhea Neck: Nontender, No thyromegaly. CVS: Regular rate and rhythm. S1-S2 present. No murmur, gallop or rub. Respiratory : clear to auscultation bilaterally, chest wall nontender Abdomen: Soft, nontender, nondistended, normal bowel sounds, no masses : Deferred Back: Nontender, no CVA tenderness, no midline spinal tenderness, deformities, step-offs Extremities: Nontender full range of motion, no trauma Skin: Normal color, no trauma. Induration of intact skin. Neuro: Alert, oriented, cranial nerves II through XII grossly intact. Psychiatry: Normal mood. Normal affect. Not depressed. Not anxious. Results Lab / Micro Data Result Diagrams: 09/27/22 23:42 09/27/22 23:42 Labs: Laboratory Results - last 24 hr 09/27/22 23:42: WBC 8.1, RBC 3.95 L, Hgb 11.3 L, Hct 36.4 L, MCV 92.2, MCH 28.6, MCHC 31.0 L, RDW Std Deviation 46.7 H, RDW Coeff of Maryann 13.7, Plt Count 244, MPV 11.2, Immature Gran % (Auto) 0.500, Neut % (Auto) 59.9, Lymph % (Auto) 24.0, Addison % (Auto) 11.5 H, Eos % (Auto) 3.5, Baso % (Auto) 0.6, Absolute Neuts (auto) 4.9, Absolute Lymphs (auto) 1.94, Nucleated RBC % 0, Differential Comment SCANNED 09/27/22 23:42: Sodium 137, Potassium 3.2 L, Chloride 110 H, Carbon Dioxide 22.0, Anion Gap 5, BUN 15, Creatinine 0.46 L, Estim Creat Clear Calc 115.60, Est GFR (MDRD) Af Amer 194, Est GFR (MDRD) Non-Af 160, BUN/Creatinine Ratio 32.9 H, Glucose 102, Calcium 8.6, Total Bilirubin 0.20, AST 14 L, ALT 13, Alkaline Phosphatase 59, Troponin I High Sens 81 H, Total Protein 7.3, Albumin 3.2, Globulin 4.1, Albumin/Globulin Ratio 0.8 L, Lipase 61 09/28/22 02:05: Troponin I High Sens 80 H Radiology Impression Chest/Abdomen/Pelvis CTA 09/28/22 00:05 IMPRESSION: 1. No evidence for aortic aneurysm or dissection. No evidence for pulmonary embolism. 2. No evidence for stenosis or occlusion of large vessels in the abdomen or pelvis. 3. Distended and thick-walled gallbladder. Consider gallbladder ultrasound for further evaluation. 4. Mild splenomegaly. 5. Small nonobstructive right renal calculi. No demonstrated ureteral calculi or hydronephrosis. 6. Port-A-Cath in place, with tip in the right atrium. Electronically Signed: Wesley Gandhi MD at 3:27 EDT , Gallbladder Ultrasound 09/28/22 04:22 IMPRESSION: 1. Multiple small shadowing stones in the gallbladder. The gallbladder is distended, but there is mild prominence of the wall measuring up to 3.6 mm. Findings could indicate early evidence of acute cholecystitis. 2. Mild dilation of the common bile duct up to 7.4 mm, which could indicate a distal common duct stone. Electronically Signed: Aniket Lucas MD at 6:22 EDT , Assessment & Plan Assessment/Plan (1) Chest pain: PLAN: Plan Chest pain Place on a monitored bed at PCU Chest/abdomen/pelvis CTA : Radiologist impression includes no evidence for aortic aneurysm or dissection. Distended gallbladder noted. CTA was visualized and independently interpreted and I agree with radiologist interpretation. Actual EKG tracing was independently visualized. EKG tracing showed new ST depressions compared to others. ASA 81 mg p.o. daily ordered Initial high sensitivity troponin was 81. Repeat is 80. Of note patient chest pain resolved completely at the ED. Trend We will check lipid panel. Stat EKG as needed for chest pain Check Echo Cardiology consult. Hypertension Blood pressure is not within goal. Captopril ordered. Trend Gallstones Gallbladder ultrasound with multiple small stones in gallbladder. No clinical symptoms of cholecystitis. No further work-up at this time. Scleroderma Stable with kidney function at baseline. Continue home medications. DVT prophylaxis: Lovenox ordered Charges/Coding Visit Charges Inpatient E&M: 69307 Init Hosp L3
--- NOTE | 2022-09-28 07:40 | ECHOD_ITS ---
Reason For Study: CHEST PAIN Procedure This was a 2D Doppler, Color Flow transthoracic echocardiogram. The study was technically difficult. Exam performed portable in patient room. Left Ventricle Normal left ventricle. The estimated ejection fraction is 50-55 %. Right Ventricle Normal right ventricle. Normal systolic function. Atria Normal left atrium. Normal right atrium. Mitral Valve The mitral valve is structurally normal. No prolapse or stenosis seen. No mitral valve insufficiency. Tricuspid Valve Normal tricuspid valve. No tricuspid valve insufficiency. Aortic Valve Normal aortic valve. Pulmonic Valve The pulmonic valve is not well visualized. Great Vessels Normal aortic root. Pericardium/Pleural No pericardial effusion. MMode/2D Measurements & Calculations LVIDd: 5.0 cm IVSd: 1.1 cm Ao root diam: 3.1 cm LVIDs: 3.2 cm LVPWd: 1.0 cm FS: 36.7 % LAV(MOD-bp): 64.9 ml LA A4 area: 21.5 cm2 LA dimension(2D): 3.1 cm LAV(MOD-bp) Indexed: 40.7 ml/m2 LAV(MOD-sp2): 55.4 ml LAV(MOD-sp4): 61.6 ml RA A4 area: 18.9 cm2 Doppler Measurements & Calculations MV E max omar: 71.5 cm/sec Lat Peak E' Omar: 6.1 cm/sec Med Peak E' Omar: 9.1 cm/sec MV A max omar: 86.0 cm/sec E/E' lat: 11.7 E/E' med: 7.9 MV E/A: 0.83 Ao V2 max: 141.1 cm/sec LV V1 max: 106.1 cm/sec PA V2 max: 113.7 cm/sec Ao max P.0 mmHg LV V1 max P.5 mmHg Ao V2 mean: 97.7 cm/sec LV V1 mean P.3 mmHg Ao mean P.3 mmHg LV V1 mean: 72.4 cm/sec Ao V2 VTI: 25.9 cm LV V1 VTI: 20.4 cm AV (velocity ratio): 0.79 ECHO/Echo Complete Interpretation Summary The estimated ejection fraction is 50-55 %. Low normal ejection fraction in the range of 50-55% With lateral hypokinesia No significant valvular abnormality No prior echocardiogram to compare. Ordering Physician: Peter Ring Referring Physician: Izzy Vivar Performed By: Sarah Beth Ritchie, DASHAWN, RVT
[2022-09-28] MEDS: Mycophenolate Mofetil 250 MG Capsule 1000 MG PO ×2 (08:42→21:19)
[2022-09-28] MEDS: DULoxetine Hcl 30 MG Capsule PO ×2 (08:42→20:58)
[2022-09-28] MEDS: SILDENAFIL CITRATE 20 MG TABLET 60 MG PO (08:43)
[2022-09-28] MEDS: Folic Acid 1 MG Tablet PO ×2 (08:43→20:59)
[2022-09-28] MEDS: Pantoprazole Sodium 40 MG Tablet PO ×2 (08:43→20:59)
[2022-09-28] MEDS: Enoxaparin 40 MG/0.4 ML Syringe SC (08:43)
[2022-09-28] MEDS: Aspirin E.C. 81 MG Tablet PO (08:43)
[2022-09-28] MEDS: Topiramate 25 MG Tablet PO ×2 (08:44→20:59)
[2022-09-28 09:23] LABS: Troponin-I HS 87 pg/mL (3.0-54.0)
--- NOTE | 2022-09-28 19:40 | PCM.HOSP.N ---
Hospitalist Note Seen and examined briefly today, I talked with cardiology about her care. Cardiology recommended to order a pharmacological stress test on the patient for tomorrow, I did not feel it necessary for cardiology to see the patient in consultation. Patient does not have any chest pain at the time my examination today and is not complaining of any shortness of breath
[2022-09-28] MEDS: SILDENAFIL CITRATE 20 MG TABLET 40 MG PO (20:59)
--- NOTE | 2022-09-28 21:14 | NURSING ---
pt and family request that [facility] Rheumatology be consult prior to dye administration. They are concerned about pt renal function.
[2022-09-29 03:26] VITALS: BP 143/81; PULSE 97; RESP 14; TEMP 36.8; O2SAT 98
[2022-09-29 04:37] VITALS: O2SAT 97
[2022-09-29 05:09] LABS: Absolute Lymphocyte Count 1.86 X10^3/uL (0.83-4.51); Absolute Neutrophil Count 3.7 X10^3/uL (2.0-7.7); Basophil# 0.04 X10^3/uL; Basophil% 0.6 % (0-1); Eosinophil# 0.42 X10^3/uL; Eosinophils% 6.3 % (0-5); Hematocrit 34.5 % (37-47); Hemoglobin 10.7 g/dL (12.0-15.0); Lymphocyte # 1.86 X10^3/ul (0.83-4.51); Lymphocyte % 27.8 % (19-41); Mean Corpuscular Hgb 28.5 pg (27.0-32.0); Mean Platelet Vol. 11.2 fl (6.2-12.0); Monocyte# 0.58 X10^3/uL; Monocyte% 8.7 % (0-10); NRBC Flagged by Analyzer 0 % (0-5); Neutrophil # 3.74 X10^3/uL (2.7-7.7); Neutrophil % 55.9 % (47-70); Platelet Count 254 K/mm3 (150-450); RBC Distribution Width SD 47.4 fl (35.1-43.9); Red Blood Count 3.75 M/mm3 (4.2-5.4); White Blood Count 6.7 K/mm3 (4.4-11.0)
[2022-09-29 05:45] VITALS: BP 165/92; PULSE 91; RESP 18; TEMP 36.4; O2SAT 96
[2022-09-29] MEDS: Aspirin E.C. 81 MG Tablet PO (05:48)
--- NOTE | 2022-09-29 05:55 | EKG12_ITS ---
Test Reason : AM EKG Blood Pressure : / mmHG Vent. Rate : 094 BPM Atrial Rate : 094 BPM P-R Int : 178 ms QRS Dur : 094 ms QT Int : 380 ms P-R-T Axes : 055 023 093 degrees QTc Int : 475 ms Normal sinus rhythm Minimal voltage criteria for LVH, may be normal variant ( Duglas product ) Nonspecific T wave abnormality Prolonged QT Abnormal ECG When compared with ECG of 28-SEP-2022 08:06, MANUAL COMPARISON REQUIRED, DATA IS UNCONFIRMED Confirmed by VENECIA HERNANDEZ ([id number]), technical writer and editor GERARD ORTIZ ([id number]) on 10/01/2022 10:22:14 AM Referred By: Confirmed By:VENECIA HERNANDEZ
[2022-09-29 06:36] LABS: Anion Gap 4 (5-15); BUN 12 mg/dL (7-18); BUN/Creat Ratio 26.3 RATIO (10-20); Calcium,Total 8.2 mg/dL (8.5-10.1); Chloride 113 mmol/L (98-107); Cholesterol 141 mg/dL (200); Creatinine, Serum 0.46 mg/dL (0.55-1.02); EST Glomerular Filtration Rate 160 mL/min (>60); Est Glom Filt Rate - Afr Amer 194 mL/min (>60); Glucose 91 mg/dL (74-106); High Density Lipoprotein 19 mg/dL; Potassium 3.4 mmol/L (3.5-5.1); Sodium Level 137 mmol/L (136-145); Triglycerides 169 mg/dL; Very Low Density Lipoprotein 34 mg/dL (5-40)
[2022-09-29 09:28] VITALS: BP 132/96; PULSE 93; RESP 18; TEMP 36.5; O2SAT 97
[2022-09-29] MEDS: Folic Acid 1 MG Tablet PO (10:33)
[2022-09-29] MEDS: SILDENAFIL CITRATE 20 MG TABLET 60 MG PO (10:33)
[2022-09-29] MEDS: DULoxetine Hcl 30 MG Capsule PO (10:34)
[2022-09-29] MEDS: Mycophenolate Mofetil 250 MG Capsule 1000 MG PO (10:34)
[2022-09-29] MEDS: Topiramate 25 MG Tablet PO (10:34)
[2022-09-29] MEDS: Pantoprazole Sodium 40 MG Tablet PO (10:34)
--- NOTE | 2022-09-29 11:07 | PCM.DC ---
Discharge Instructions Diet Discharge Diet: No restrictions Activity Discharge Activity: Return to Normal Activity Weight Bearing Status: Weight bearing as tolerated Dressing / Incision Call your doctor if you observe: Fever of 101 or Higher, Coldness, Increased Pain, Numbness or Tingling, Change in Color, Inability to urinate, Inability to have a bowel movement, Using more than 1 pad per hour, Shortness of breath, Dizziness, Fainting spells, Swelling in the ankles, Chest pain, Prolonged hiccupping, Increased palpitations (irregular heartbeat) and Calf discomfort Follow Up Care When: IN 2 WEEKS Test Results: Test results from this visit will be discussed in further detail at your follow-up appointment, if applicable. 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 Discharge Orders/Prescriptions Prescriptions: New lisinopril 10 mg tablet 10 mg PO DAILY Qty: 30 0RF atorvastatin 20 mg tablet 20 mg PO QHS Qty: 30 0RF Continued sildenafil 50 MG tablet 60 mg PO DAILY cyanocobalamin (vitamin B-12) 1,000 MCG tablet 1,000 mcg PO DAILY mycophenolate mofetil (HCl) 500 MG recon soln 1,000 mg PO BID sildenafil 50 mg tablet 40 mg PO QHS Label Comments: TAKE 1 TABLET BY MOUTH TWICE DAILY topiramate 25 mg tablet 25 mg PO BID Label Comments: TAKE 1 TABLET BY MOUTH TWICE DAILY potassium chloride 20 mEq/15 mL liquid 20 meq PO SUTUTHSA Label Comments: TAKE 15MLS BY MOUTH 3 TIMES DAILY ON TPN OFF DAYS ( 3 DAYS/ WEEK) pantoprazole 40 mg tablet,delayed release (DR/EC) 40 mg PO BID Label Comments: TAKE 1 TABLET BY MOUTH TWICE DAILY 30 MINUTES BEFORE BREAKFAST AND DINNER folic acid 1 mg tablet 1 mg PO BID Label Comments: TAKE 2 TABLETS BY MOUTH ONCE DAILY duloxetine 30 mg capsule,delayed release(DR/EC) 30 mg PO BID Label Comments: TAKE 1 CAPSULE BY MOUTH TWICE DAILY Referrals / Follow Up: Izzy Vivar DO [Primary Care Provider] - Within 2 Weeks
--- NOTE | 2022-09-29 12:26 | STRESSREP ---
Stress Test Report Lexiscan myocardial perfusion stress test. Indication; 42-year-old patient with history of scleroderma and anemia with a history of protein calorie malnutrition Patient has symptoms of chest pain Patient with history of hypertension Noted elevated cardiac biomarker was high sensitive troponins and underwent Lexiscan sestamibi myocardial fusion study. Stress protocol: Resting EKG demonstrates. Normal sinus rhythm. With ST depression noted in the inferior lead 0.4 mg of regadenoson was infused per usual protocol followed by rapid intravenous saline flush injection continuous EKG monitoring was performed. The maximum heart rate attained was 144 bpm which was 80% of maximum predicted heart . Stress EKG showed[, no significant change from the resting EKG, with maximum heart rate of 144 bpm. Arrhythmia: Frequent PVCs Symptoms: Patient had no symptoms of chest pain Blood pressure at rest: 148/84 mmHg blood pressure at the end of stress: 162/84 mmHg Myocardial perfusion protocol. 11.1 mCi ]of Technetium 99m Sestamibi was injected at rest. [ 0.4 mg ]of Regadenoson was infused per usual protocol peak infusion 34.9 mCi ]of Technetium 99m sestamibi was injected. Stress images were obtained stress and rest images were reconstructed and compared in the short axis vertical and horizontal long axis. Gated images were also obtained Perfusion SPECT analysis: Review of the images demonstrate normal uptake of sestamibi at rest, post stress images demonstrate similar uptake of sestamibi to the resting images, homogeneous tracer uptake With no evidence of reversible myocardial ischemia. Gated SPECT analysis: The gated ejection fraction is calculated as 48%. Mild global LV hypokinesia Conclusion: Negative Lexiscan sestamibi myocardial perfusion study for reversible myocardial ischemia Mild LV systolic dysfunction Juanita Paulino MD,FACC,[facility]
--- NOTE | 2022-09-29 13:14 | PCM.DC.SUM ---
Providers Date of Admission: 09/28/22 Date of Discharge: 09/29/22 Primary Care Physician: Dr. Izzy Vivar, DO Reason For Visit: CHEST PAIN Diagnosis Discharge Diagnosis (1) Chest pain: Status: Acute Code(s): R07.9 - Chest pain, unspecified Plan: This 42-year-old female being admitted for atypical chest pain with radiation to back. She does not have a history of coronary artery disease but is Cloderm. 1. Atypical chest pain. Patient was admitted in PCU. Chest pain was resolved in ED. Chest CTA was done which was negative for acute aneurysm or acute dissection. Twelve-lead EKG shows slight new ST depression compared to the previous 1. On aspirin 81 mg daily. Fasting profile shows low HDL. Initial high sensitivity troponin was 81.? Repeat 80 and 87 therefore no major delta change. Almond Blancher was verbally discussed by colleague and he recommended doing a stress test. Pharmacological nuclear stress test was done which shows no stress-induced ischemia. Patient discharged home. 2. Hypertension: Blood pressure elevated therefore patient recently started on captopril. It was changed to lisinopril because of captopril 3 times daily dosing. 3. Asymptomatic gallstones found on imaging. Gallbladder ultrasound with multiple small stones in gallbladder.? No clinical symptoms of cholecystitis.? No further work-up at this time. 4. Scleroderma Stable with kidney function at baseline.? Patient follows [facility] customer service coordinator. Continue home medications. 5. DVT prophylaxis: Lovenox ordered Discharge medication reconciliation done. Discharge follow-up instructions completed. Discharge process discussed with the patient and all questions were answered to patient's satisfaction. Discharged home. Prescriptions for lisinopril and low-dose atorvastatin given. Total time spent, exact 35 minutes on discharge meds reconciliation, examination, coordination of care with nurses and ancillary staff, review of imaging and blood test and discussion with the patient on follow-up instructions. Medications at Discharge Home Medications cyanocobalamin (vitamin B-12) 1,000 mcg tablet 1,000 mcg PO DAILY supplement 01/26/20 mycophenolate mofetil (HCl) 500 mg intravenous solution 1,000 mg PO BID 01/26/20 sildenafil 50 mg tablet 60 mg PO DAILY circulation 01/26/20 duloxetine 30 mg capsule,delayed release 30 mg PO BID 09/27/22 folic acid 1 mg tablet 1 mg PO BID 09/27/22 pantoprazole 40 mg tablet,delayed release 40 mg PO BID 09/27/22 potassium chloride 20 mEq/15 mL oral liquid 20 meq PO SUTUTHSA 09/27/22 sildenafil 50 mg tablet 40 mg PO QHS 09/27/22 topiramate 25 mg tablet 25 mg PO BID 09/27/22 atorvastatin 20 mg tablet 20 mg PO QHS #30 tabs 09/29/22 lisinopril 10 mg tablet 10 mg PO DAILY #30 tabs 09/29/22 Physical Exam Narrative Seen and examined. quality assurance monitor shows sinus rhythm. Patient did not have chest pain or shortness of breath or new symptoms. Physical exam General: Alert, Oriented x3, Cooperative HEENT: Atraumatic, PERRLA, EOMI, Normocephalic Oral: Microstomia. No Gingival or Mucosal Lesions/ Ulcerations Neck: Supple, No JVD, Negative Carotid Bruits Chest wall/lungs: Mediport on right upper chest. Air entry diminished in bilateral lung bases. No crepitation/rhonchi Cardiovascular: Regular rate, Regular Rhythm, Normal S1, Normal S2, No murmurs Abdomen: Bowel Sounds Present, Soft, Non Tender, Non-Distended : No renal angle tenderness. No suprapubic tenderness. Extremities: No edema, Capillary Refill Less than 3 Seconds Skin: No rashes, No breakdown Musculoskeletal: Hardening, woody induration and tightening of his skin of all 4 extremities. ROM restricted. No acute tenderness of extremities or joints. Chronic changes of scleroderma. Neurological: Cranial nerves II-XII grossly intact, DTR 2+/4 and Symmetrical, Neuro grossly intact. Muscle strength 4+/5 at major joints of lower extremities and upper extremities Psych/Mental Status: Flat affect. Weight / BMI Weight Weight: 138 lb 10.732 oz Body Mass Index (BMI) 27.1 ABG / Lab / Microbiology Data Result Diagrams: 09/29/22 05:00 09/29/22 05:00 Laboratory: Laboratory Results - last 24 hr 09/29/22 05:00: WBC 6.7, RBC 3.75 L, Hgb 10.7 L, Hct 34.5 L, MCV 92.0, MCH 28.5, MCHC 31.0 L, RDW Std Deviation 47.4 H, RDW Coeff of Maryann 14.0, Plt Count 254, MPV 11.2, Immature Gran % (Auto) 0.700, Neut % (Auto) 55.9, Lymph % (Auto) 27.8, [place] % (Auto) 8.7, Eos % (Auto) 6.3 H, Baso % (Auto) 0.6, Absolute Neuts (auto) 3.7, Absolute Lymphs (auto) 1.86, Nucleated RBC % 0 09/29/22 05:00: Sodium 137, Potassium 3.4 L, Chloride 113 H, Carbon Dioxide 20.0 L, Anion Gap 4 L, BUN 12, Creatinine 0.46 L, Estim Creat Clear Calc 115.60, Est GFR (MDRD) Af Amer 194, Est GFR (MDRD) Non-Af 160, BUN/Creatinine Ratio 26.3 H, Glucose 91, Calcium 8.2 L, Triglycerides 169, Cholesterol 141, LDL Cholesterol 88, VLDL Cholesterol 34, HDL Cholesterol 19 L D/C Instructions Discharge Diet: No restrictions Weight Bearing Status: Weight bearing as tolerated Call your doctor if you observe: Fever of 101 or Higher, Coldness, Increased Pain, Numbness or Tingling, Change in Color, Inability to urinate, Inability to have a bowel movement, Using more than 1 pad per hour, Shortness of breath, Dizziness, Fainting spells, Swelling in the ankles, Chest pain, Prolonged hiccupping, Increased palpitations (irregular heartbeat) and Calf discomfort When: IN 2 WEEKS Meaningful Use Info Meaningful Use Diagnoses (Choose all that apply): None applicable Discharge Plan Admission Admit Date/Time: 09/28/22 06:29 Attending Provider: Israel Hurtado Primary Care Provider: Izzy Vivar Consulting Providers: Peter Ring ; Bay Thurman Instructions Additional Instructions / Restrictions: Follow-up [facility] customer service coordinator Discharge Orders/Prescriptions Prescriptions: New lisinopril 10 mg tablet 10 mg PO DAILY Qty: 30 0RF atorvastatin 20 mg tablet 20 mg PO QHS Qty: 30 0RF Continued sildenafil 50 MG tablet 60 mg PO DAILY cyanocobalamin (vitamin B-12) 1,000 MCG tablet 1,000 mcg PO DAILY mycophenolate mofetil (HCl) 500 MG recon soln 1,000 mg PO BID sildenafil 50 mg tablet 40 mg PO QHS Label Comments: TAKE 1 TABLET BY MOUTH TWICE DAILY topiramate 25 mg tablet 25 mg PO BID Label Comments: TAKE 1 TABLET BY MOUTH TWICE DAILY potassium chloride 20 mEq/15 mL liquid 20 meq PO SUTUTHSA Label Comments: TAKE 15MLS BY MOUTH 3 TIMES DAILY ON TPN OFF DAYS ( 3 DAYS/ WEEK) pantoprazole 40 mg tablet,delayed release (DR/EC) 40 mg PO BID Label Comments: TAKE 1 TABLET BY MOUTH TWICE DAILY 30 MINUTES BEFORE BREAKFAST AND DINNER folic acid 1 mg tablet 1 mg PO BID Label Comments: TAKE 2 TABLETS BY MOUTH ONCE DAILY duloxetine 30 mg capsule,delayed release(DR/EC) 30 mg PO BID Label Comments: TAKE 1 CAPSULE BY MOUTH TWICE DAILY Referrals / Follow Up: Izzy Vivar DO [Primary Care Provider] - Within 2 Weeks Disposition Discharge Orders: Discharge Patient (Routine); Ordered 09/29/22 Ordered By: Dr. Israel Hurtado Charges/Coding Visit Charges Inpatient E&M: 56575 Disch Hosp >30min
--- NOTE | 2022-09-29 13:47 | PHA.DC.MC ---
Pharmacy Service has performed discharge medication reconciliation and counseling for this patient. The patient was counseled on the following discharge medications and changes in medications for homegoing were reviewed. 1. LISINOPRIL 2. LIPITOR The Reason for Use, instructions for use, and potential side effects were reviewed for all new medications. The patient's questions regarding all of their medications were answered. The patient was able to verbally demonstrate an understanding of their discharge medications. Home Medications cyanocobalamin (vitamin B-12) 1,000 mcg tablet 1,000 mcg PO DAILY supplement 01/26/20 mycophenolate mofetil (HCl) 500 mg intravenous solution 1,000 mg PO BID 01/26/20 sildenafil 50 mg tablet 60 mg PO DAILY circulation 01/26/20 duloxetine 30 mg capsule,delayed release 30 mg PO BID 09/27/22 folic acid 1 mg tablet 1 mg PO BID 09/27/22 pantoprazole 40 mg tablet,delayed release 40 mg PO BID 09/27/22 potassium chloride 20 mEq/15 mL oral liquid 20 meq PO SUTUTHSA 09/27/22 sildenafil 50 mg tablet 40 mg PO QHS 09/27/22 topiramate 25 mg tablet 25 mg PO BID 09/27/22 aspirin 81 mg tablet,delayed release (Bassem Low Dose Aspirin) 81 mg PO DAILY #30 tabs 09/29/22 atorvastatin 20 mg tablet 20 mg PO QHS #30 tabs 09/29/22 carvedilol 3.125 mg tablet 3.125 mg PO BID 30 days #60 tabs 09/29/22 lisinopril 10 mg tablet 10 mg PO DAILY #30 tabs 09/29/22 The patient's discharge medication list was reviewed for discrepancies and discrepancies were resolved.
[2022-09-29 15:15] VITALS: BP 140/75; PULSE 95; RESP 18; TEMP 36.7; O2SAT 97
--- NOTE | 2022-09-29 16:11 | CHAPLAIN ---
Type of Pastoral Visit _x__ Initial Visit ___ Follow-up Visit ___ On-call Visit ___ General Patient Visit ___ Spiritual Assessment ___ Family Conference ___ Bereavement ___ Rapid Response ___ Code Blue ___ Other (describe below) Pastoral Care Referral From _x__ Patient ___ Family ___ Nurse ___ Physician ___ Victim Witness Administrator ___ Podiatric Aide ___ Other (describe below) Sacrament/Intervention _x__ Active listening ___ Anointing ___ Synagogue ___ Bereavement ___ Communion ___ Lily exploration ___ ___ Life review ___ Prayer ___ Reconciliation ___ Sacrament of Sick _x__ Supportive presence ___ Wedding ___ Other (describe below) Pastoral Comments patient reports feeling well and being discharged; pt states no other needs
== END 2022-09-29 13:13 | disposition home or self-care (01) ==
LOC: ED 09-28 00:25 → PCU 09-28 07:00
PROVIDERS: Admitting Provider Hospitalist; Emergency Provider Emergency Medicine; PCP Internal Medicine; Visit Provider Internal Medicine
DX: R07.89 Other chest pain (principal); M34.9 Systemic sclerosis, unspecified; Z87.891 Personal history of nicotine dependence; I10 Essential (primary) hypertension; Z79.899 Other long term (current) drug therapy; E87.6 Hypokalemia
CPT/HCPCS: 36591; 71275; 74174; 76705; 78452; 80048; 80053; 80061; 83690; 84484; 85025; 93005; 93017; 93306; 96361; 96372; 96374; 96375; 97162; 97166; 99221; 99285; A9500; J7030; Q9967; A4216; G0378; J2405; J2785

== ENCOUNTER 2022-11-18 13:14 | Emergency (ER) | payer MEDICARE, MEDICAID, SELFPAY ==
[2022-11-18 13:15] VITALS: BP 137/68; PULSE 112; RESP 16; TEMP 36.6; O2SAT 97
[2022-11-18 14:05] VITALS: BMI 26.2
--- NOTE | 2022-11-18 14:20 | CT_ITS ---
STUDY: CT Abdomen And Pelvis W/ Contrast Injection 11/18/2022 5:00 PM REASON FOR EXAM: Female, 42 years old. ABDOMINAL PAIN Diarrhea, Pain TECHNIQUE: Transaxial images were obtained without oral contrast, and IV 100mL Isovue-370 intravenous contrast. Individualized dose optimization techniques were used for this CT. COMPARISON: 08.27.20 ct pelvis FINDINGS: The visualized lung bases are unremarkable. The visualized portions of the heart are within normal limits. Unremarkable liver. Unremarkable gallbladder and extrahepatic biliary system. Unremarkable spleen. Unremarkable pancreas. Unremarkable bilateral adrenal glands. Non obstructive 2 mm right renal parenchymal stones. No acute findings of the left kidney. Focal wall thickening of the antrum of stomach. This can suggest a gastritis. There is a paralytic ileus of the small intestine with mild gaseous distention. There is wall thickening of the entire colon. There is also questionable inflammation around the colon. This can suggest a colitis. This can also suggest incomplete distension of the colon. The appendix is visualized and appears unremarkable. There are no acute findings of the abdominal aorta. Unremarkable inferior vena cava. Subcentimeter mesenteric lymph nodes. Unremarkable urinary bladder. There is an umbilical hernia containing fat. Unremarkable osseous structures. CT/Abdomen/Pelvis W IV Cont ONLY IMPRESSION: (NOT LISTED IN ORDER OF SIGNIFICANCE) Gastritis. And Pancolitis. Combined findings can be seen in Crohn''s disease. Non obstructive 2 mm right renal parenchymal stones. Other findings as above. Electronically Signed: Aniket Meraz MD at 17:03 EDT ,
--- NOTE | 2022-11-18 14:20 | ED.VIS.GI ---
HPI HPI - GI History of Present Illness Chief Complaint: Diarrhea Narrative Narrative: 42-year-old female past medical history of scleroderma, has a med port, was recently taken off TPN presents with diarrhea. While she has always had watery stool, she states 430 this morning she began having multiple episodes of watery stool and crampy abdominal pain. Last few episodes of her bowel movements had bright red blood contained within. They were concerned because they state that ever since their daughter was born, whenever the patient becomes anemic, she requires blood transfusions to build up back up. She last had her blood levels/hemoglobin checked on Thursday, but now with her rectal bleeding she is concerned that she may need a blood transfusion. She denies any chest pain or lightheadedness, no shortness of breath. No prior abdominal surgeries, but she does state that she does not take blood thinners, and in the past she had to have endoscopy performed where they cauterized something. [facility] Medical History Raynaud disease Scleroderma Home Medications cyanocobalamin (vitamin B-12) 1,000 mcg tablet 1,000 mcg PO DAILY supplement 01/26/20 [History Last Taken 01/26/20] mycophenolate mofetil (HCl) 500 mg intravenous solution 1,000 mg PO BID 01/26/20 [History Last Taken 01/26/20] sildenafil 50 mg tablet 60 mg PO DAILY circulation 01/26/20 [History Last Taken 01/26/20] duloxetine 30 mg capsule,delayed release 30 mg PO BID 09/27/22 [History Last Taken Unknown] folic acid 1 mg tablet 1 mg PO BID 09/27/22 [History Last Taken Unknown] pantoprazole 40 mg tablet,delayed release 40 mg PO BID 09/27/22 [History Last Taken Unknown] potassium chloride 20 mEq/15 mL oral liquid 20 meq PO SUTUTHSA 09/27/22 [History Last Taken Unknown] sildenafil 50 mg tablet 40 mg PO QHS 09/27/22 [History Last Taken Unknown] topiramate 25 mg tablet 25 mg PO BID 09/27/22 [History Last Taken Unknown] aspirin 81 mg tablet,delayed release (Bassem Low Dose Aspirin) 81 mg PO DAILY #30 tabs 09/29/22 [Rx Last Taken Unknown] atorvastatin 20 mg tablet 20 mg PO QHS #30 tabs 09/29/22 [Rx Last Taken Unknown] carvedilol 3.125 mg tablet 3.125 mg PO BID 30 days #60 tabs 09/29/22 [Rx Last Taken Unknown] lisinopril 10 mg tablet 10 mg PO DAILY #30 tabs 09/29/22 [Rx Last Taken Unknown] Allergy/AdvReac Type Severity Reaction Status Date / Time No Known Allergies Allergy Verified 11/18/22 13:16 Family History Other Hypertension Surgical History Hx of tonsillectomy Previous section Social History Smoking Status: Former smoker ROS ROS ED ROS Narrative Constitutional: No fever, no chills. HEENT: No sore throat. No neck pain. No loss of vision. No rhinorrhea. Cardiovascular: No chest pain. No palpitations. No pedal edema. Respiratory: No cough, no shortness of breath. Abdominal: Diffuse, crampy abdominal pain. No nausea. No vomiting. Positive diarrhea. Bright red blood per rectum with last few episodes. Genitourinary: No dysuria. No hematuria. Musculoskeletal: No myalgias. No arthralgias. Neurologic: No headaches. No dizziness. No lightheadedness. Skin: No rash. No change in color. Psychiatric: No depression. No anxiety. EXAM Physical Exam Narrative Exam Narrative: Afebrile. Vital signs noted. HEENT: Normocephalic. Atraumatic. PERRL, EOMI. Neck soft and supple. No point tenderness or step off. Cardiovascular: Positive tachycardia no murmurs, rubs, or gallops appreciated. Respiratory: No tachypnea. Lungs clear to auscultation bilaterally. Gastrointestinal: Abdomen soft, mild, diffuse tenderness with normoactive bowel sounds. No rebound or guarding. Neurological: Awake. Alert. Nonfocal, nonlateralizing. Skin: No rash. Normal color. No pallor. Musculoskeletal: No pedal edema. Full range of motion extremities. Const Vital Signs: 11/18/22 13:15 Temperature 98 F Temperature Source Temporal Pulse Rate 112 H Respiratory Rate 16 Blood Pressure 137/68 H Blood Pressure Mean 91 Pulse Ox 97 Oxygen Delivery Method Room Air MDM MDM MDM Narrative Medical decision making narrative: I reviewed the patient's prior records. Comprehensive work-up will be pursued. In the differential diagnosis is colitis versus diverticular bleed versus gastroenteritis/enteritis. She has not had any vomiting or hematemesis. I will check a CBC to make sure she is not anemic requiring transfusion. She will be bolused normal saline 1 L intravenously. I reviewed the patient's laboratory work and she has slightly elevated white count of 11.8, hemoglobin stable at 11.9, platelet count normal at 311. Electrolyte panel shows chloride slightly elevated at 112, anion gap normal at 7, normal BUN of 15 and creatinine low at 0.46. Urinalysis shows white cells 10-25, but I do not feel that antibiotics are indicated as she is not having dysuria or hematuria. She has negative ketones in her urine, I do not feel she is profoundly dehydrated from her diarrhea. CT of the abdomen and pelvis was obtained which shows inflammation of the stomach consistent with gastritis along with pancolitis. This can be consistent with Crohn disease. Additionally, she has a past medical history of scleroderma. Patient feels well and that her diarrhea has slowed down. She states that while she has a tobacco grower, they are at the [facility] and she would like to follow-up with gastroenterology down here. I did discuss the patient with the nurse practitioner, Aria, with gastroenterology who will follow-up with the patient sooner than later. Additionally, I discussed the use of steroids with her. When I discussed this with the patient, they state that the lab scientist does not want her to be on steroids. I feel she can still be discharged home with follow-up to gastroenterology with possible diagnosis of Crohn disease. She will return with increased bleeding, new or worsening symptoms. Through shared decision-making, she did not want observation or admission and would like to go home to follow-up as an outpatient. Disposition is discharged. Patient is in stable condition. History & Record Review Discussion w/independent historian: Patient and Significant other Additional record(s) reviewed:: Prior ED visit and Prior labs Lab Data Attestation: I reviewed the patient's lab results. Labs: Laboratory Results - last 24 hr 11/18/22 11/18/22 11/18/22 14:37 14:37 14:37 WBC 11.8 H RBC 4.17 L Hgb 11.9 L Hct 37.2 MCV 89.2 MCH 28.5 MCHC 32.0 RDW Std Deviation 50.7 H RDW Coeff of Maryann 15.5 H Plt Count 311 MPV 11.6 Immature Gran % (Auto) 0.300 Neut % (Auto) 74.8 H Lymph % (Auto) 13.5 L [place] % (Auto) 9.4 Eos % (Auto) 1.7 Baso % (Auto) 0.3 Absolute Neuts (auto) 8.8 H Absolute Lymphs (auto) 1.60 Nucleated RBC % 0 Sodium 138 Potassium 3.6 Chloride 112 H Carbon Dioxide 19.0 L Anion Gap 7 BUN 15 Creatinine 0.46 L Estim Creat Clear Calc 115.60 Est GFR (MDRD) Af Amer 191 Est GFR (MDRD) Non-Af 158 BUN/Creatinine Ratio 32.5 H Glucose 94 Calcium 9.2 Total Bilirubin 0.30 AST 7 L ALT 13 Alkaline Phosphatase 81 Total Protein 8.0 Albumin 3.6 Globulin 4.4 H Albumin/Globulin Ratio 0.8 L Lipase 53 Serum , Qual NEGATIVE Urine Color Urine Clarity Urine pH Ur Specific [place] Urine Protein Urine Glucose (UA) Urine Ketones Urine Occult Blood Urine Nitrite Urine Bilirubin Urine Urobilinogen Ur Leukocyte Esterase Urine RBC Urine WBC Ur Squamous Epith Cells Urine Bacteria Urine Mucus 11/18/22 15:15 WBC RBC Hgb Hct MCV MCH MCHC RDW Std Deviation RDW Coeff of Maryann Plt Count MPV Immature Gran % (Auto) Neut % (Auto) Lymph % (Auto) [place] % (Auto) Eos % (Auto) Baso % (Auto) Absolute Neuts (auto) Absolute Lymphs (auto) Nucleated RBC % Sodium Potassium Chloride Carbon Dioxide Anion Gap BUN Creatinine Estim Creat Clear Calc Est GFR (MDRD) Af Amer Est GFR (MDRD) Non-Af BUN/Creatinine Ratio Glucose Calcium Total Bilirubin AST ALT Alkaline Phosphatase Total Protein Albumin Globulin Albumin/Globulin Ratio Lipase Serum , Qual Urine Color Yellow Urine Clarity Sl. Cloudy Urine pH 5.0 Ur Specific [place] 1.025 Urine Protein 15 H Urine Glucose (UA) Normal Urine Ketones Negative Urine Occult Blood 250 H Urine Nitrite Negative Urine Bilirubin Negative Urine Urobilinogen Normal Ur Leukocyte Esterase 100 H Urine RBC 0-5 SEEN Urine WBC 10-25 SEEN Ur Squamous Epith Cells 0-5 SEEN Urine Bacteria 1+ Urine Mucus 0 SEEN Radiography Diagnostic Testing: Clinical Impression(s) from Imaging Studies Abdomen/Pelvis CT 11/18/22 14:20 IMPRESSION: (NOT LISTED IN ORDER OF SIGNIFICANCE) Gastritis. And Pancolitis. Combined findings can be seen in Crohn''s disease. Non obstructive 2 mm right renal parenchymal stones. Other findings as above. Electronically Signed: Aniket Meraz MD at 17:03 EDT Reading Location ID and State: [facility] / [place] , Service support , Discharge Plan Triage Chief Complaint: Diarrhea ED Provider: Danielito Avila Dx/Rx/DC Orders Clinical Impression: Diarrhea, Scleroderma progressive, Gastritis, Pancolitis Instructions: ED Understanding Colitis, ED Gastritis (Adult) Prescriptions: No Action sildenafil 50 MG tablet 60 mg PO DAILY cyanocobalamin (vitamin B-12) 1,000 MCG tablet 1,000 mcg PO DAILY mycophenolate mofetil (HCl) 500 MG recon soln 1,000 mg PO BID sildenafil 50 mg tablet 40 mg PO QHS Label Comments: TAKE 1 TABLET BY MOUTH TWICE DAILY topiramate 25 mg tablet 25 mg PO BID Label Comments: TAKE 1 TABLET BY MOUTH TWICE DAILY potassium chloride 20 mEq/15 mL liquid 20 meq PO SUTUTHSA Label Comments: TAKE 15MLS BY MOUTH 3 TIMES DAILY ON TPN OFF DAYS ( 3 DAYS/ WEEK) pantoprazole 40 mg tablet,delayed release (DR/EC) 40 mg PO BID Label Comments: TAKE 1 TABLET BY MOUTH TWICE DAILY 30 MINUTES BEFORE BREAKFAST AND DINNER folic acid 1 mg tablet 1 mg PO BID Label Comments: TAKE 2 TABLETS BY MOUTH ONCE DAILY duloxetine 30 mg capsule,delayed release(DR/EC) 30 mg PO BID Label Comments: TAKE 1 CAPSULE BY MOUTH TWICE DAILY lisinopril 10 mg tablet 10 mg PO DAILY Qty: 30 0RF atorvastatin 20 mg tablet 20 mg PO QHS Qty: 30 0RF aspirin [Bassem Low Dose Aspirin] 81 mg tablet,delayed release (DR/EC) 81 mg PO DAILY Qty: 30 2RF carvedilol 3.125 mg tablet 3.125 mg PO BID 30 Days Qty: 60 0RF Rx Instructions: must administer with a meal/food Primary Care Provider: Izzy Vivar Referrals: Izzy Vivar DO [Primary Care Provider] - Umer Ryder DO [Med Staff - Active Staff] - As soon as possible Activity Restrictions/Additional Instructions: Call your tobacco grower tomorrow. Follow-up with Dr. Ryder locally as soon as possible. Return with increased bleeding, new or worsening symptoms. Disposition Disposition: Home, Self Care
[2022-11-18] MEDS: 0.9% Normal Saline 1,000 ML 1000 ML IV (14:33)
[2022-11-18 14:44] LABS: Absolute Neutrophil Count 8.8 X10^3/uL (2.0-7.7); Basophil# 0.04 X10^3/uL; Basophil% 0.3 % (0-1); Eosinophils% 1.7 % (0-5); Hematocrit 37.2 % (37-47); Hemoglobin 11.9 g/dL (12.0-15.0); Lymphocyte % 13.5 % (19-41); Mean Corpuscular Hgb 28.5 pg (27.0-32.0); Mean Corpuscular Volume 89.2 fL (81-99); Mean Platelet Vol. 11.6 fl (6.2-12.0); Monocyte# 1.11 X10^3/uL; Monocyte% 9.4 % (0-10); NRBC Flagged by Analyzer 0 % (0-5); Neutrophil # 8.84 X10^3/uL (2.7-7.7); Neutrophil % 74.8 % (47-70); Platelet Count 311 K/mm3 (150-450); RBC Distribution Width CV 15.5 % (11.6-14.6); RBC Distribution Width SD 50.7 fl (35.1-43.9); Red Blood Count 4.17 M/mm3 (4.2-5.4); White Blood Count 11.8 K/mm3 (4.4-11.0)
[2022-11-18 14:49] LABS: Internal QC Validated? YES +Cl - CLEAR BKGD
[2022-11-18 14:55] LABS: Pregnancy, Serum, hCG Quali. NEGATIVE Negative
[2022-11-18 15:02] LABS: ALB/GLOB Ratio 0.8 RATIO (0.9-2.4); AST(SGOT) 7 U/L (15-37); Alanine Aminotransfer ALT/SGPT 13 U/L (13-56); Albumin, Serum 3.6 g/dL (3.2-5.0); Alkaline Phosphatase 81 U/L (45-117); Anion Gap 7 (5-15); BUN 15 mg/dL (7-18); BUN/Creat Ratio 32.5 RATIO (10-20); Calcium,Total 9.2 mg/dL (8.5-10.1); Chloride 112 mmol/L (98-107); Creatinine, Serum 0.46 mg/dL (0.55-1.02); EST Glomerular Filtration Rate 158 mL/min (>60); Est Glom Filt Rate - Afr Amer 191 mL/min (>60); Globulin 4.4 g/dL (2.2-4.2); Glucose 94 mg/dL (74-106); Lipase 53 U/L (13-75); Potassium 3.6 mmol/L (3.5-5.1); Sodium Level 138 mmol/L (136-145)
[2022-11-18 15:18] LABS: Mucous, Urine 0 SEEN /hpf (<or=2+)
[2022-11-18 15:28] LABS: Color, Urine Yellow (Yellow); Glucose, Dipstick Normal (Normal); Ketone-Dipstick Negative (Negative); Leukocyte Esterase-Dipstick 100 /ul (Negative); Nitrite-Dipstick Negative (Negative); Occult Blood-Urine 250 /ul (Negative); Protein-Dipstick 15 mg/dl (Negative); Specific Gravity, Urine 1.025 (1.002-1.030); Urine Bilirubin Dipstick Negative (Negative); Urine Clarity Sl. Cloudy (Clear); Urine Urobilinogen Normal (Normal)
[2022-11-18 16:00] VITALS: RESP 18
[2022-11-18 16:02] LABS: Bacteria 1+ /hpf (None Seen); Red Blood Cells-Urine 0-5 SEEN /hpf (0-5); Squamous Epithelial Cells - UA 0-5 SEEN /hpf (5-10); White Blood Cells 10-25 SEEN /hpf (0-5)
[2022-11-18 18:19] VITALS: RESP 18
== END 2022-11-18 18:33 | disposition home or self-care (01) ==
PROVIDERS: Emergency Provider Emergency Medicine; PCP Internal Medicine; Visit Provider Emergency Medicine
DX: K29.70 Gastritis, unspecified, without bleeding (principal); M34.9 Systemic sclerosis, unspecified; R19.7 Diarrhea, unspecified; Z79.82 Long term (current) use of aspirin; Z79.899 Other long term (current) drug therapy; Z87.891 Personal history of nicotine dependence
CPT/HCPCS: 74177; 80053; 81001; 83690; 84703; 85025; 96360; 99282; J7030; Q9967; A4216